=== PATIENT | male | born 1980 | race American Indian/Alaskan Native ===

== ENCOUNTER 2018-03-03 18:05 | Inpatient (IN) | payer OTHER ==
--- NOTE | 2018-03-03 20:53 | Emergency Department Report ---
Blank Doc - Documentation Documentation: Patient is a 37-year-old male who presents with dizziness and shortness of breath hasn't gone for about a week. Patient states that whenever he gets up or tries to walk he feels very short of breath and gets dizzy. Patient also has tinnitus in his right ear patient's exam is concerning for heart failure will get chest x-ray EKG troponin and EKG and BNP.
[2018-03-03 21:11] LABS: BUN/Creatinine Ratio 10; Blood Urea Nitrogen 8 mg/dL (9-20); Calcium 8.5 mg/dL (8.4-10.2); Hemolysis Index 0
[2018-03-03 22:10] LABS: Red Blood Count 1.16 M/mm3 (3.65-5.03)
[2018-03-03 22:12] LABS: Hematocrit 8.3 % (35.5-45.6); Hemoglobin 2.3 gm/dl (11.8-15.2); Mean Corpuscular Hemoglobin 20 pg (28-32); Mean Corpuscular Volume 72 fl (84-94)
[2018-03-03 22:13] LABS: Mean Corpuscular HGB Conc 28 % (32-34); Platelet Count 786 K/mm3 (140-440); Red Cell Distribution Width 28.2 % (13.2-15.2)
[2018-03-03] MEDS ORDERED: NACL 0.9% 500 ML 500 ML IV ONE (22:28)
[2018-03-03] MEDS ORDERED: PROTONIX IV ONE (22:42)
[2018-03-03 22:58] LABS: Anisocytosis 3+; Basophils % (Manual) 0 % (0.0-1.8); Eosinophils % (Manual) 0 % (0.0-4.3); Hypochromasia 2+; Total Cells Counted 100
[2018-03-03 22:59] LABS: Platelet Estimate Consistent w Auto
[2018-03-03] MEDS: PROTONIX 80 MG in NACL 0.9% 100 ML IV SCH (23:00)
--- NOTE | 2018-03-03 23:05 | Emergency Department Report ---
HPI - General Chief Complaint: Dizziness Time Seen by Provider: 03/03/18 21:29 - HPI HPI: 37-year-old male presents the ED with shortness of breath, leg swelling, dizziness. Last week, worse today. Patient states today he can only work for 5 steps without getting very tired. Patient states he is unable to climb stairs due to his shortness of breath. He leg swelling of been significantly worsening in the past week. Patient also complained 1 month history of alternating bloody, and black stools. He denies any past medical history except for history of left inguinal hernia status post repair in 2013. He does not have a primary care. ED Past Medical Hx - Past Medical History Previous Medical History?: Yes Hx Hypertension: No Additional medical history: Left inguinal hernia - Social History Smoking Status: Current Every Day Smoker Substance Use Type: Alcohol - Medications Home Medications: Home Medications Medication Instructions Recorded Confirmed Last Taken Type No Known Home Medications [No 08/09/14 09/22/14 Unknown History Reported Home Medications] ED Review of Systems ROS: Stated complaint: DIZZINESS/RINGING IN EARS/SWOLLEN FEET Other details as noted in HPI Comment: All other systems reviewed and negative Gastrointestinal: melena, hematochezia, other Neurological: weakness. denies: headache Hematological/Lymphatic: denies: as per HPI, easy bleeding, easy bruising, swollen glands Physical Exam - Physical Exam Vital Signs: Vital Signs 03/03/18 18:12 Temperature 98.9 F Pulse Rate 105 H Respiratory 16 Rate Blood Pressure 106/47 O2 Sat by Pulse 97 Oximetry Physical Exam: - Physical Exam Physical Exam: - General Limitations: No Limitations General appearance: alert, in no apparent distress. - Head Head exam: Present: atraumatic, normocephalic - Eye Eye exam: Present: normal appearance - ENT ENT exam: Present: mucous membranes moist - Neck Neck exam: Present: normal inspection - Respiratory Respiratory exam: Present: normal lung sounds bilaterally. Absent: respiratory distress - Cardiovascular Cardiovascular Exam: Present: normal rhythm, tachycardia. Absent: systolic murmur, diastolic murmur, rubs, gallop - GI/Abdominal GI/Abdominal exam: Present: soft, normal bowel sounds - Extremities Exam Extremities exam: Present: Bilateral lower extremity 3+ edema. - Back Exam Back exam: Present: normal inspection - Neurological Exam Neurological exam: Present: alert, oriented X3 - Psychiatric Psychiatric exam: normal affect and mood - Skin Skin exam: Present: warm, dry, intact, normal color. Absent: rash -Rectal: No active bleeding, bedside fecal occult blood negative ED Course Vital Signs 03/03/18 18:12 Temperature 98.9 F Pulse Rate 105 H Respiratory 16 Rate Blood Pressure 106/47 O2 Sat by Pulse 97 Oximetry - Reevaluation(s) Reevaluation #1: 03/03/18 23:45 Patient, girlfriend, grandfather at bedside given an update of patient's status , states that his condition is critical, will transfuse 4 units of blood, discussed case with Dr. Tevin CANALES, he will see patient in a.m. ED Medical Decision Making - Lab Data Result diagrams: 03/03/18 21:45 03/03/18 20:46 Critical Care Time: Yes Critical care attestation.: If time is entered above; I have spent that time in minutes in the direct care of this critically ill patient, excluding procedure time. ED Disposition Clinical Impression: Severe anemia Disposition: DC-[id number] OP ADMIT IP TO THIS HOSP Is pt being admited?: Yes Does the pt Need Aspirin: No Condition: Critical
[2018-03-03] MEDS ORDERED: NACL ONE (23:15)
--- NOTE | 2018-03-03 23:35 | XRay Report ---
FINAL REPORT EXAM: XR CHEST ROUTINE 2V HISTORY: sob TECHNIQUE: 2 views of the chest. PRIORS: None. FINDINGS: The cardiomediastinal silhouette appears normal. The lungs are clear. The bones and soft tissues are unremarkable. IMPRESSION: No evidence of acute cardiopulmonary disease
[2018-03-04] MEDS ORDERED: ZOFRAN IV PRN (00:50)
[2018-03-04] MEDS ORDERED: TYLENOL PO PRN (00:50)
[2018-03-04] MEDS ORDERED: NORCO 5/325 PO PRN (00:50)
[2018-03-04] MEDS ORDERED: SODIUM CHLORIDE FLUSH SYRINGE 10 ML IV PRN (00:50)
[2018-03-04] MEDS ORDERED: NACL 0.9% 1000 ML 1,000 ML IV SCH (01:00)
--- NOTE | 2018-03-04 01:20 | Cat Scan Report ---
FINAL REPORT EXAM: CT A/P w Contrast CLINICAL INDICATIONS: Abdomen Pain FINDINGS: Contrast enhanced CT of the abdomen and pelvis was performed. The heart is mildly large. The lung bases appear clear. Abdomen: There is fatty infiltration of the liver without suspect focal hepatic lesion. The spleen is mildly enlarged at 12.2 x 3.9 cm. The adrenal glands are within normal limits. No focal pancreatic lesion is seen. The gallbladder is unremarkable. There is no renal or ureteral calculus. There is no small or large bowel obstruction. Pelvis: There is a normal appendix. There is no evidence of diverticulitis. The prostate and urinary bladder are within normal limits. There is a fat-containing left inguinal hernia. There is no free air. IMPRESSION: CARDIOMEGALY ABDOMEN: FATTY INFILTRATION OF THE LIVER PELVIS: NORMAL APPENDIX FAT-CONTAINING LEFT INGUINAL HERNIA
[2018-03-04] MEDS ORDERED: XYLOCAINE 1% MPF 5 mL INFILTRATI ONE (01:45)
--- NOTE | 2018-03-04 01:51 | History and Physical Report ---
History of Present Illness Date of examination: 03/04/18 Date of admission: 03/03/18 22:52 Chief complaint: Dizziness History of present illness: Patient is a 37-year-old -[place] male who presented with one-week history of dizziness. He has associated generalized weakness, easy fatigability , near syncope, sob with mild exertion, leg swelling and palpitation. He also admits to 4 weeks history of passage of dark stool. No abdominal pain, constipation or diarrhea. Past History Past Medical History: other (hemorrhoids, left inguinal hernia) Past Surgical History: Other (hemorrhoidectomy) Social history: smoking (20 years), alcohol abuse (10 years), other (denies illicit drug use) Family history: other (reviewed and noncontributory) Medications and Allergies Allergies Allergy/AdvReac Type Severity Reaction Status Date / Time No Known Allergies Allergy Verified 09/21/14 18:11 Home Medications Medication Instructions Recorded Confirmed Last Taken Type No Known Home Medications [No 08/09/14 09/22/14 Unknown History Reported Home Medications] Active Meds: Active Medications Acetaminophen (Tylenol) 650 mg PO Q4H PRN PRN Reason: Pain MILD(1-3)/Fever >100.5/REYES Acetaminophen/Hydrocodone Bitart (Edwards 5/325) 1 each PO Q6H PRN PRN Reason: Pain, Moderate (4-6) Docusate Sodium (Colace) 100 mg PO BID IRIS Pantoprazole Sodium 80 mg/ (Sodium Chloride) 100 mls @ 10 mls/hr IV DIRECT IRIS Sodium Chloride (Nacl 0.9% 1000 Ml) 1,000 mls @ 75 mls/hr IV DIRECT IRIS Ceftriaxone Sodium 1,000 mg/ (Sodium Chloride) 50 mls @ 100 mls/hr IV Q24H IRIS ; Protocol Lidocaine (Xylocaine 1% Mpf 5 Ml) 2 ml INFILTRATI ONCE ONE Stop: 03/04/18 01:46 Ondansetron HCl (Zofran) 4 mg IV Q8H PRN PRN Reason: Nausea And Vomiting Sodium Chloride (Sodium Chloride Flush Syringe 10 Ml) 10 ml IV BID IRIS Sodium Chloride (Sodium Chloride Flush Syringe 10 Ml) 10 ml IV PRN PRN PRN Reason: LINE FLUSH Review of Systems All systems: negative (Except as documented in the HPI, all other systems were reviewed and negative) Exam - Constitutional Vitals: Temp Pulse Resp BP Pulse Ox 98.9 F 103 H 33 H 108/54 100 03/03/18 18:12 03/04/18 01:06 03/04/18 01:06 03/04/18 01:06 03/04/18 01:06 General appearance: Present: no acute distress, well-nourished - EENT Eyes: Present: PERRL, EOM intact, scleral icterus ENT: hearing intact, clear oral mucosa - Neck Neck: Present: supple, normal ROM - Respiratory Respiratory effort: normal Respiratory: bilateral: CTA - Cardiovascular Rhythm: regular (tachycardia) Heart Sounds: Present: S1 & S2. Absent: rub, click - Extremities Extremities: pulses symmetrical Extremity abnormal: edema (in BLE) Peripheral Pulses: within normal limits - Abdominal General gastrointestinal: Present: soft, non-tender, non-distended, normal bowel sounds Male genitourinary: Present: normal - Integumentary Integumentary: Present: dry, pale - Musculoskeletal Musculoskeletal: gait normal, strength equal bilaterally - Psychiatric Psychiatric: appropriate mood/affect, intact judgment & insight - Neurologic Neurologic: CNII-XII intact, moves all extremities Results - Labs CBC & Chem 7: 03/03/18 21:45 03/03/18 20:46 Labs: Laboratory Last Values WBC 20.4 K/mm3 (4.5-11.0) H 03/03/18 21:45 RBC 1.16 M/mm3 (3.65-5.03) L 03/03/18 21:45 Hgb 2.3 gm/dl (11.8-15.2) L* 03/03/18 21:45 Hct 8.3 % (35.5-45.6) L* 03/03/18 21:45 MCV 72 fl (84-94) L 03/03/18 21:45 MCH 20 pg (28-32) L 03/03/18 21:45 MCHC 28 % (32-34) L 03/03/18 21:45 RDW 28.2 % (13.2-15.2) H 03/03/18 21:45 Plt Count 786 K/mm3 (140-440) H 03/03/18 21:45 Add Manual Diff Complete 03/03/18 21:45 Total Counted 100 03/03/18 21:45 Seg Neuts % (Manual) 85.0 % (40.0-70.0) H 03/03/18 21:45 Band Neutrophils % 0 % 03/03/18 21:45 Lymphocytes % (Manual) 11.0 % (13.4-35.0) L 03/03/18 21:45 Reactive Lymphs % (Man) 0 % 03/03/18 21:45 Monocytes % (Manual) 4.0 % (0.0-7.3) 03/03/18 21:45 Eosinophils % (Manual) 0 % (0.0-4.3) 03/03/18 21:45 Basophils % (Manual) 0 % (0.0-1.8) 03/03/18 21:45 Metamyelocytes % 0 % 03/03/18 21:45 Myelocytes % 0 % 03/03/18 21:45 Promyelocytes % 0 % 03/03/18 21:45 Blast Cells % 0 % 03/03/18 21:45 Nucleated RBC % Not Reportable 03/03/18 21:45 Seg Neutrophils # Man 17.3 K/mm3 (1.8-7.7) H 03/03/18 21:45 Band Neutrophils # 0.0 K/mm3 03/03/18 21:45 Lymphocytes # (Manual) 2.2 K/mm3 (1.2-5.4) 03/03/18 21:45 Abs React Lymphs (Man) 0.0 K/mm3 03/03/18 21:45 Monocytes # (Manual) 0.8 K/mm3 (0.0-0.8) 03/03/18 21:45 Eosinophils # (Manual) 0.0 K/mm3 (0.0-0.4) 03/03/18 21:45 Basophils # (Manual) 0.0 K/mm3 (0.0-0.1) 03/03/18 21:45 Metamyelocytes # 0.0 K/mm3 03/03/18 21:45 Myelocytes # 0.0 K/mm3 03/03/18 21:45 Promyelocytes # 0.0 K/mm3 03/03/18 21:45 Blast Cells # 0.0 K/mm3 03/03/18 21:45 WBC Morphology Not Reportable 03/03/18 21:45 Hypersegmented Neuts Not Reportable 03/03/18 21:45 Hyposegmented Neuts Not Reportable 03/03/18 21:45 Hypogranular Neuts Not Reportable 03/03/18 21:45 Smudge Cells Not Reportable 03/03/18 21:45 Toxic Granulation Not Reportable 03/03/18 21:45 Toxic Vacuolation Not Reportable 03/03/18 21:45 Dohle Bodies Not Reportable 03/03/18 21:45 Pelger-Huet Anomaly Not Reportable 03/03/18 21:45 Leo Rods Not Reportable 03/03/18 21:45 Platelet Estimate Consistent w auto 03/03/18 21:45 Clumped Platelets Not Reportable 03/03/18 21:45 Plt Clumps, EDTA Not Reportable 03/03/18 21:45 Large Platelets Not Reportable 03/03/18 21:45 Giant Platelets Not Reportable 03/03/18 21:45 Platelet Satelliting Not Reportable 03/03/18 21:45 Plt Morphology Comment Not Reportable 03/03/18 21:45 RBC Morphology Not Reportable 03/03/18 21:45 Dimorphic RBCs Not Reportable 03/03/18 21:45 Polychromasia Not Reportable 03/03/18 21:45 Hypochromasia 2+ 03/03/18 21:45 Poikilocytosis Not Reportable 03/03/18 21:45 Anisocytosis 3+ 03/03/18 21:45 Microcytosis Not Reportable 03/03/18 21:45 Macrocytosis Not Reportable 03/03/18 21:45 Spherocytes Not Reportable 03/03/18 21:45 Pappenheimer Bodies Not Reportable 03/03/18 21:45 Sickle Cells Not Reportable 03/03/18 21:45 Target Cells Not Reportable 03/03/18 21:45 Tear Drop Cells Not Reportable 03/03/18 21:45 Ovalocytes Not Reportable 03/03/18 21:45 Helmet Cells Not Reportable 03/03/18 21:45 [place] Bodies Not Reportable 03/03/18 21:45 [place] Rings Not Reportable 03/03/18 21:45 James Cells Not Reportable 03/03/18 21:45 Bite Cells Not Reportable 03/03/18 21:45 Crenated Cell Not Reportable 03/03/18 21:45 Elliptocytes Not Reportable 03/03/18 21:45 Acanthocytes (Spur) Not Reportable 03/03/18 21:45 Rouleaux Not Reportable 03/03/18 21:45 Hemoglobin C Crystals Not Reportable 03/03/18 21:45 Schistocytes Not Reportable 03/03/18 21:45 Malaria parasites Not Reportable 03/03/18 21:45 Jonathan Bodies Not Reportable 03/03/18 21:45 Hem Pathologist Commnt No 03/03/18 21:45 Sodium 130 mmol/L (137-145) L 03/03/18 20:46 Potassium 4.2 mmol/L (3.6-5.0) 03/03/18 20:46 Chloride 94.2 mmol/L (98-107) L 03/03/18 20:46 Carbon Dioxide 20 mmol/L (22-30) L 03/03/18 20:46 Anion Gap 20 mmol/L 03/03/18 20:46 BUN 8 mg/dL (9-20) L 03/03/18 20:46 Creatinine 0.8 mg/dL (0.8-1.5) 03/03/18 20:46 Estimated GFR > 60 ml/min 03/03/18 20:46 BUN/Creatinine Ratio 10 % 03/03/18 20:46 Glucose 106 mg/dL (75-100) H 03/03/18 20:46 Calcium 8.5 mg/dL (8.4-10.2) 03/03/18 20:46 Troponin T < 0.010 ng/mL (0.00-0.029) 03/03/18 20:46 NT-Pro-B Natriuret Pep 1007 pg/mL (0-450) H 03/03/18 20:46 Blood Type O POSITIVE 03/03/18 22:49 Antibody Screen Negative 03/03/18 22:49 Crossmatch See Detail 03/03/18 22:49 Assessment and Plan Assessment and plan: GI bleed, probably secondary to history of hemorrhoid -Patient will be transfused with 4 units of packed red blood cells, will monitor posttransfusion H&H -Will continue Protonix drip -GI was consulted in the ED SIRS -Exact source of infection is unknown -We will obtain blood and urine cultures -We'll start empiric IV antibiotic with Rocephin Hyponatremia -Patient will be placed on IV fluid, will monitor sodium level History of alcohol abuse -He will be placed on alcohol withdrawal prophylaxis -Patient was counseled on cessation Elevated BNP -Will order echocardiogram to assess EF and valvular function Prophylaxis -DVT prophylaxis with SCD and GI prophylaxis with Protonix. 38 minutes spent in coordinating care
[2018-03-04] MEDS ORDERED: ROCEPHIN 1,000 MG in NACL 0.9% 50 ML IV SCH (02:00)
[2018-03-04] MEDS ORDERED: LASIX IV ONE (02:09)
[2018-03-04] MEDS ORDERED: ATIVAN IV PRN (02:28)
[2018-03-04] MEDS: cefTRIAXone 1 GM in NACL 0.9% 20 ML IV SCH ×2 (02:45→10:11)
[2018-03-04 03:13] LABS: Bilirubin,Urine NEG (Negative); Blood,Urine NEG (Negative); Color,Urine Yellow (Yellow); Protein,Urine <15 mg/dL mg/dL (Negative); Urobilinogen,Urine < 2.0 mg/dL (<2.0)
[2018-03-04] MEDS ORDERED: VITAMIN B-1 PO SCH (10:00)
[2018-03-04] MEDS: PROTONIX 80 MG in NACL 0.9% 100 ML IV SCH ×2 (10:09→20:54)
[2018-03-04] MEDS: FOLVITE PO SCH (10:12)
[2018-03-04] MEDS: COLACE PO SCH ×2 (10:12→21:54)
[2018-03-04] MEDS: SODIUM CHLORIDE FLUSH SYRINGE 10 ML IV SCH ×2 (10:12→21:55)
[2018-03-04] MEDS: THERAGRAN Tab PO SCH (10:12)
[2018-03-04] MEDS ORDERED: D5NS 1,000 ML IV SCH (10:30)
--- NOTE | 2018-03-04 10:35 | Gastroenterology Consultation ---
<NAZ JEAN - Last Filed: 03/04/18 10:54> History of Present Illness - Reason for Consult Consult date: 03/04/18 GI bleed Requesting physician: JAD LOPEZ - History of Present Illness Patient is a 37 y/o male who presented to ED with c/o SOB, dizziness, weakness, near syncope, leg swelling, and palpitations. He was found to be severely anemic on admission with HGB 2.3. Patient admits to blood in his stool alternating between black and bright red blood x 1 month. No hematemesis. Denies fever, wt loss, CP, abd pain, N/V, diarrhea, or constipation. No NSAID use or hx of PUD. Admits to drinking alcohol daily but denies any previous hx of liver disease. No prior EGD or colonoscopy. No hx or Fhx of GI cancers. Past History Past Medical History: other (hemorrhoids, left inguinal hernia) Past Surgical History: Other (hemorrhoidectomy) Social history: smoking (20 years), alcohol abuse (10 years), other (denies illicit drug use) Family history: other (reviewed and noncontributory) Medications and Allergies Allergies Allergy/AdvReac Type Severity Reaction Status Date / Time No Known Allergies Allergy Verified 09/21/14 18:11 Home Medications Medication Instructions Recorded Confirmed Last Taken Type No Known Home Medications [No 08/09/14 09/22/14 Unknown History Reported Home Medications] Active Meds: Active Medications Acetaminophen (Tylenol) 650 mg PO Q4H PRN PRN Reason: Pain MILD(1-3)/Fever >100.5/REYES Acetaminophen/Hydrocodone Bitart ([place] 5/325) 1 each PO Q6H PRN PRN Reason: Pain, Moderate (4-6) Docusate Sodium (Colace) 100 mg PO BID [facility] Last Admin: 03/04/18 10:12 Dose: 100 mg Folic Acid (Folvite) 1 mg PO QDAY [facility] Last Admin: 03/04/18 10:12 Dose: 1 mg Pantoprazole Sodium 80 mg/ (Sodium Chloride) 100 mls @ 10 mls/hr IV DIRECT [facility] Last Admin: 03/04/18 10:09 Dose: 8 mg/hr, 10 mls/hr Ceftriaxone Sodium 1 gm/ (Sodium Chloride) 20 mls @ 2 mls/min IV Q24HR [facility] Last Admin: 03/04/18 10:11 Dose: 2 mls/min Dextrose/Sodium Chloride (D5ns) 1,000 mls @ 100 mls/hr IV DIRECT [facility] Lorazepam (Ativan) 2 mg IV Q4H PRN PRN Reason: Agitation Multivitamins (Theragran Tab) 1 each PO QDAY [facility] Last Admin: 03/04/18 10:12 Dose: 1 each Ondansetron HCl (Zofran) 4 mg IV Q8H PRN PRN Reason: Nausea And Vomiting Sodium Chloride (Sodium Chloride Flush Syringe 10 Ml) 10 ml IV BID [facility] Last Admin: 03/04/18 10:12 Dose: 10 ml Sodium Chloride (Sodium Chloride Flush Syringe 10 Ml) 10 ml IV PRN PRN PRN Reason: LINE FLUSH Thiamine HCl (Vitamin B-1) 100 mg PO QDAY [facility] Last Admin: 03/04/18 10:12 Dose: 100 mg Review of Systems - Review of Systems All systems: negative Constitutional: weakness Gastrointestinal: melena, hematochezia Neurological: other (dizziness) Exam - Constitutional Vital Signs: Temp Pulse Resp BP Pulse Ox 99.2 F 103 H 18 124/60 99 03/04/18 04:00 03/04/18 02:50 03/04/18 05:07 03/04/18 02:50 03/04/18 02:49 General appearance: no acute distress, well-nourished - EENT Eyes: PERRL, EOM intact ENT: hearing intact - Respiratory Respiratory: bilateral: CTA - Cardiovascular Rhythm: other (tachycardia) Heart Sounds: Present: S1 & S2 - Gastrointestinal General gastrointestinal: Present: soft, non-tender, non-distended, normal bowel sounds - Integumentary Integumentary: Present: warm, dry - Neurologic Neurological: alert and oriented x3 - Labs CBC & Chem 7: 03/03/18 21:45 03/03/18 20:46 Lab Results: Laboratory Results - last 24 hr 03/03/18 03/03/18 03/03/18 20:46 21:45 22:49 WBC 20.4 H RBC 1.16 L Hgb 2.3 L* Hct 8.3 L* MCV 72 L MCH 20 L MCHC 28 L RDW 28.2 H Plt Count 786 H Add Manual Diff Complete Total Counted 100 Seg Neuts % (Manual) 85.0 H Band Neutrophils % 0 Lymphocytes % (Manual) 11.0 L Reactive Lymphs % (Man) 0 Monocytes % (Manual) 4.0 Eosinophils % (Manual) 0 Basophils % (Manual) 0 Metamyelocytes % 0 Myelocytes % 0 Promyelocytes % 0 Blast Cells % 0 Nucleated RBC % Not Reportable Seg Neutrophils # Man 17.3 H Band Neutrophils # 0.0 Lymphocytes # (Manual) 2.2 Abs React Lymphs (Man) 0.0 Monocytes # (Manual) 0.8 Eosinophils # (Manual) 0.0 Basophils # (Manual) 0.0 Metamyelocytes # 0.0 Myelocytes # 0.0 Promyelocytes # 0.0 Blast Cells # 0.0 WBC Morphology Not Reportable Hypersegmented Neuts Not Reportable Hyposegmented Neuts Not Reportable Hypogranular Neuts Not Reportable Smudge Cells Not Reportable Toxic Granulation Not Reportable Toxic Vacuolation Not Reportable Dohle Bodies Not Reportable Pelger-Huet Anomaly Not Reportable Leo Rods Not Reportable Platelet Estimate Consistent w auto Clumped Platelets Not Reportable Plt Clumps, EDTA Not Reportable Large Platelets Not Reportable Giant Platelets Not Reportable Platelet Satelliting Not Reportable Plt Morphology Comment Not Reportable RBC Morphology Not Reportable Dimorphic RBCs Not Reportable Polychromasia Not Reportable Hypochromasia 2+ Poikilocytosis Not Reportable Anisocytosis 3+ Microcytosis Not Reportable Macrocytosis Not Reportable Spherocytes Not Reportable Pappenheimer Bodies Not Reportable Sickle Cells Not Reportable Target Cells Not Reportable Tear Drop Cells Not Reportable Ovalocytes Not Reportable Helmet Cells Not Reportable Duncan-Kirkpatrick Bodies Not Reportable [place] Rings Not Reportable James Cells Not Reportable Bite Cells Not Reportable Crenated Cell Not Reportable Elliptocytes Not Reportable Acanthocytes (Spur) Not Reportable Rouleaux Not Reportable Hemoglobin C Crystals Not Reportable Schistocytes Not Reportable Malaria parasites Not Reportable Jonathan Bodies Not Reportable Hem Pathologist Commnt No Sodium 130 L Potassium 4.2 Chloride 94.2 L Carbon Dioxide 20 L Anion Gap 20 BUN 8 L Creatinine 0.8 Estimated GFR > 60 BUN/Creatinine Ratio 10 Glucose 106 H POC Glucose Calcium 8.5 Troponin T < 0.010 NT-Pro-B Natriuret Pep 1007 H Urine Color Urine Turbidity Urine pH Ur Specific [place] Urine Protein Urine Glucose (UA) Urine Ketones Urine Blood Urine Nitrite Urine Bilirubin Urine Urobilinogen Ur Leukocyte Esterase Urine WBC (Auto) Urine RBC (Auto) Blood Type O POSITIVE Antibody Screen Negative Crossmatch See Detail 03/03/18 03/04/18 Unknown 03:28 WBC RBC Hgb Hct MCV MCH MCHC RDW Plt Count Add Manual Diff Total Counted Seg Neuts % (Manual) Band Neutrophils % Lymphocytes % (Manual) Reactive Lymphs % (Man) Monocytes % (Manual) Eosinophils % (Manual) Basophils % (Manual) Metamyelocytes % Myelocytes % Promyelocytes % Blast Cells % Nucleated RBC % Seg Neutrophils # Man Band Neutrophils # Lymphocytes # (Manual) Abs React Lymphs (Man) Monocytes # (Manual) Eosinophils # (Manual) Basophils # (Manual) Metamyelocytes # Myelocytes # Promyelocytes # Blast Cells # WBC Morphology Hypersegmented Neuts Hyposegmented Neuts Hypogranular Neuts Smudge Cells Toxic Granulation Toxic Vacuolation Dohle Bodies Pelger-Huet Anomaly Leo Rods Platelet Estimate Clumped Platelets Plt Clumps, EDTA Large Platelets Giant Platelets Platelet Satelliting Plt Morphology Comment RBC Morphology Dimorphic RBCs Polychromasia Hypochromasia Poikilocytosis Anisocytosis Microcytosis Macrocytosis Spherocytes Pappenheimer Bodies Sickle Cells Target Cells Tear Drop Cells Ovalocytes Helmet Cells Duncan-Kirkpatrick Bodies [place] Rings James Cells Bite Cells Crenated Cell Elliptocytes Acanthocytes (Spur) Rouleaux Hemoglobin C Crystals Schistocytes Malaria parasites Jonathan Bodies Hem Pathologist Commnt Sodium Potassium Chloride Carbon Dioxide Anion Gap BUN Creatinine Estimated GFR BUN/Creatinine Ratio Glucose POC Glucose 109 H Calcium Troponin T NT-Pro-B Natriuret Pep Urine Color Yellow Urine Turbidity Clear Urine pH 6.0 Ur Specific [place] 1.019 Urine Protein <15 mg/dl Urine Glucose (UA) Neg Urine Ketones Neg Urine Blood Neg Urine Nitrite Neg Urine Bilirubin Neg Urine Urobilinogen < 2.0 Ur Leukocyte Esterase Neg Urine WBC (Auto) 1.0 Urine RBC (Auto) 1.0 Blood Type Antibody Screen Crossmatch Assessment and Plan 1.GI bleed 2.severe anemia 3.melena 4.hematochezia -HGB 2.3- 4th unit of PRBCs transfusing -continue to monitor H/H and transfuse as needed -hold blood thinning medications -currently HD stable -BM yesterday with bright red blood and brown stool per pt but he reports alternating black stools and bright red blood in stool x 1 month- no active signs of bleeding this am -etiology unclear -will schedule for EGD/colonoscopy in am -INR now -clear liquids today, then NPO after MN -continue PPI and supportive care -will follow <ABHISHEK GRAY - Last Filed: 03/04/18 19:13> Medications and Allergies Active Meds: Active Medications Acetaminophen (Tylenol) 650 mg PO Q4H PRN PRN Reason: Pain MILD(1-3)/Fever >100.5/REYES Acetaminophen/Hydrocodone Bitart ([place] 5/325) 1 each PO Q6H PRN PRN Reason: Pain, Moderate (4-6) Docusate Sodium (Colace) 100 mg PO BID [facility] Last Admin: 03/04/18 10:12 Dose: 100 mg Folic Acid (Folvite) 1 mg PO QDAY [facility] Last Admin: 03/04/18 10:12 Dose: 1 mg Pantoprazole Sodium 80 mg/ (Sodium Chloride) 100 mls @ 10 mls/hr IV DIRECT [facility] Last Admin: 03/04/18 10:09 Dose: 8 mg/hr, 10 mls/hr Ceftriaxone Sodium 1 gm/ (Sodium Chloride) 20 mls @ 2 mls/min IV Q24HR [facility] Last Admin: 03/04/18 10:11 Dose: 2 mls/min Dextrose/Sodium Chloride (D5ns) 1,000 mls @ 100 mls/hr IV DIRECT [facility] Lorazepam (Ativan) 2 mg IV Q4H PRN PRN Reason: Agitation Multivitamins (Theragran Tab) 1 each PO QDAY [facility] Last Admin: 03/04/18 10:12 Dose: 1 each Ondansetron HCl (Zofran) 4 mg IV Q8H PRN PRN Reason: Nausea And Vomiting Sodium Chloride (Sodium Chloride Flush Syringe 10 Ml) 10 ml IV BID [facility] Last Admin: 03/04/18 10:12 Dose: 10 ml Sodium Chloride (Sodium Chloride Flush Syringe 10 Ml) 10 ml IV PRN PRN PRN Reason: LINE FLUSH Thiamine HCl (Vitamin B-1) 100 mg PO QDAY [facility] Last Admin: 03/04/18 10:12 Dose: 100 mg Exam - Constitutional Vital Signs: Temp Pulse Resp BP Pulse Ox 98.1 F 90 16 124/74 100 03/04/18 12:00 03/04/18 18:50 03/04/18 18:50 03/04/18 18:50 03/04/18 18:50 - Labs CBC & Chem 7: 03/04/18 12:16 03/04/18 12:16 Lab Results: Laboratory Results - last 24 hr 03/03/18 03/03/18 03/03/18 20:46 21:45 22:49 WBC 20.4 H RBC 1.16 L Hgb 2.3 L* Hct 8.3 L* MCV 72 L MCH 20 L MCHC 28 L RDW 28.2 H Plt Count 786 H Add Manual Diff Complete Total Counted 100 Seg Neuts % (Manual) 85.0 H Band Neutrophils % 0 Lymphocytes % (Manual) 11.0 L Reactive Lymphs % (Man) 0 Monocytes % (Manual) 4.0 Eosinophils % (Manual) 0 Basophils % (Manual) 0 Metamyelocytes % 0 Myelocytes % 0 Promyelocytes % 0 Blast Cells % 0 Nucleated RBC % Not Reportable Seg Neutrophils # Man 17.3 H Band Neutrophils # 0.0 Lymphocytes # (Manual) 2.2 Abs React Lymphs (Man) 0.0 Monocytes # (Manual) 0.8 Eosinophils # (Manual) 0.0 Basophils # (Manual) 0.0 Metamyelocytes # 0.0 Myelocytes # 0.0 Promyelocytes # 0.0 Blast Cells # 0.0 WBC Morphology Not Reportable Hypersegmented Neuts Not Reportable Hyposegmented Neuts Not Reportable Hypogranular Neuts Not Reportable Smudge Cells Not Reportable Toxic Granulation Not Reportable Toxic Vacuolation Not Reportable Dohle Bodies Not Reportable Pelger-Huet Anomaly Not Reportable Leo Rods Not Reportable Platelet Estimate Consistent w auto Clumped Platelets Not Reportable Plt Clumps, EDTA Not Reportable Large Platelets Not Reportable Giant Platelets Not Reportable Platelet Satelliting Not Reportable Plt Morphology Comment Not Reportable RBC Morphology Not Reportable Dimorphic RBCs Not Reportable Polychromasia Not Reportable Hypochromasia 2+ Poikilocytosis Not Reportable Anisocytosis 3+ Microcytosis Not Reportable Macrocytosis Not Reportable Spherocytes Not Reportable Pappenheimer Bodies Not Reportable Sickle Cells Not Reportable Target Cells Not Reportable Tear Drop Cells Not Reportable Ovalocytes Not Reportable Helmet Cells Not Reportable Duncan-Kirkpatrick Bodies Not Reportable [place] Rings Not Reportable James Cells Not Reportable Bite Cells Not Reportable Crenated Cell Not Reportable Elliptocytes Not Reportable Acanthocytes (Spur) Not Reportable Rouleaux Not Reportable Hemoglobin C Crystals Not Reportable Schistocytes Not Reportable Malaria parasites Not Reportable Jonathan Bodies Not Reportable Hem Pathologist Commnt No PT INR APTT Sodium 130 L Potassium 4.2 Chloride 94.2 L Carbon Dioxide 20 L Anion Gap 20 BUN 8 L Creatinine 0.8 Estimated GFR > 60 BUN/Creatinine Ratio 10 Glucose 106 H POC Glucose Lactic Acid Calcium 8.5 Phosphorus Magnesium Total Bilirubin AST ALT Alkaline Phosphatase Troponin T < 0.010 C-Reactive Protein NT-Pro-B Natriuret Pep 1007 H Total Protein Albumin Albumin/Globulin Ratio Urine Color Urine Turbidity Urine pH Ur Specific [place] Urine Protein Urine Glucose (UA) Urine Ketones Urine Blood Urine Nitrite Urine Bilirubin Urine Urobilinogen Ur Leukocyte Esterase Urine WBC (Auto) Urine RBC (Auto) Blood Type O POSITIVE Antibody Screen Negative Crossmatch See Detail 03/03/18 03/04/18 03/04/18 Unknown 03:28 12:16 WBC RBC Hgb Hct MCV MCH MCHC RDW Plt Count Add Manual Diff Total Counted Seg Neuts % (Manual) Band Neutrophils % Lymphocytes % (Manual) Reactive Lymphs % (Man) Monocytes % (Manual) Eosinophils % (Manual) Basophils % (Manual) Metamyelocytes % Myelocytes % Promyelocytes % Blast Cells % Nucleated RBC % Seg Neutrophils # Man Band Neutrophils # Lymphocytes # (Manual) Abs React Lymphs (Man) Monocytes # (Manual) Eosinophils # (Manual) Basophils # (Manual) Metamyelocytes # Myelocytes # Promyelocytes # Blast Cells # WBC Morphology Hypersegmented Neuts Hyposegmented Neuts Hypogranular Neuts Smudge Cells Toxic Granulation Toxic Vacuolation Dohle Bodies Pelger-Huet Anomaly Leo Rods Platelet Estimate Clumped Platelets Plt Clumps, EDTA Large Platelets Giant Platelets Platelet Satelliting Plt Morphology Comment RBC Morphology Dimorphic RBCs Polychromasia Hypochromasia Poikilocytosis Anisocytosis Microcytosis Macrocytosis Spherocytes Pappenheimer Bodies Sickle Cells Target Cells Tear Drop Cells Ovalocytes Helmet Cells Duncan-Kirkpatrick Bodies [place] Rings James Cells Bite Cells Crenated Cell Elliptocytes Acanthocytes (Spur) Rouleaux Hemoglobin C Crystals Schistocytes Malaria parasites Jonathan Bodies Hem Pathologist Commnt PT INR APTT Sodium Potassium Chloride Carbon Dioxide Anion Gap BUN Creatinine Estimated GFR BUN/Creatinine Ratio Glucose POC Glucose 109 H Lactic Acid 1.10 Calcium Phosphorus Magnesium Total Bilirubin AST ALT Alkaline Phosphatase Troponin T C-Reactive Protein NT-Pro-B Natriuret Pep Total Protein Albumin Albumin/Globulin Ratio Urine Color Yellow Urine Turbidity Clear Urine pH 6.0 Ur Specific [place] 1.019 Urine Protein <15 mg/dl Urine Glucose (UA) Neg Urine Ketones Neg Urine Blood Neg Urine Nitrite Neg Urine Bilirubin Neg Urine Urobilinogen < 2.0 Ur Leukocyte Esterase Neg Urine WBC (Auto) 1.0 Urine RBC (Auto) 1.0 Blood Type Antibody Screen Crossmatch 03/04/18 03/04/18 03/04/18 12:16 12:16 12:16 WBC 15.8 H RBC 2.52 L Hgb 6.1 L D Hct 19.7 L* D MCV 78 L MCH 24 L MCHC 31 L RDW 25.1 H Plt Count 730 H Add Manual Diff Complete Total Counted 100 Seg Neuts % (Manual) 87.0 H Band Neutrophils % 0 Lymphocytes % (Manual) 8.0 L Reactive Lymphs % (Man) 0 Monocytes % (Manual) 4.0 Eosinophils % (Manual) 1.0 Basophils % (Manual) 0 Metamyelocytes % 0 Myelocytes % 0 Promyelocytes % 0 Blast Cells % 0 Nucleated RBC % Not Reportable Seg Neutrophils # Man 13.7 H Band Neutrophils # 0.0 Lymphocytes # (Manual) 1.3 Abs React Lymphs (Man) 0.0 Monocytes # (Manual) 0.6 Eosinophils # (Manual) 0.2 Basophils # (Manual) 0.0 Metamyelocytes # 0.0 Myelocytes # 0.0 Promyelocytes # 0.0 Blast Cells # 0.0 WBC Morphology Not Reportable Hypersegmented Neuts Not Reportable Hyposegmented Neuts Not Reportable Hypogranular Neuts Not Reportable Smudge Cells Not Reportable Toxic Granulation Not Reportable Toxic Vacuolation Not Reportable Dohle Bodies Not Reportable Pelger-Huet Anomaly Not Reportable Leo Rods Not Reportable Platelet Estimate Consistent w auto Clumped Platelets Not Reportable Plt Clumps, EDTA Not Reportable Large Platelets Not Reportable Giant Platelets Not Reportable Platelet Satelliting Not Reportable Plt Morphology Comment Not Reportable RBC Morphology Not Reportable Dimorphic RBCs Not Reportable Polychromasia Not Reportable Hypochromasia 2+ Poikilocytosis Not Reportable Anisocytosis 2+ Microcytosis 1+ Macrocytosis 1+ Spherocytes Not Reportable Pappenheimer Bodies Not Reportable Sickle Cells Not Reportable Target Cells Not Reportable Tear Drop Cells Not Reportable Ovalocytes Few Helmet Cells Not Reportable Duncan-Kirkpatrick Bodies Not Reportable [place] Rings Not Reportable [place] Cells Not Reportable Bite Cells Not Reportable Crenated Cell Not Reportable Elliptocytes Few Acanthocytes (Spur) Not Reportable Rouleaux Not Reportable Hemoglobin C Crystals Not Reportable Schistocytes Not Reportable Malaria parasites Not Reportable Jonathan Bodies Not Reportable Hem Pathologist Commnt No PT INR APTT Sodium 136 L 136 L Potassium 3.3 L D 3.5 L Chloride 97.3 L 96.9 L Carbon Dioxide 22 21 L Anion Gap 20 22 BUN 8 L 8 L Creatinine 0.7 L 0.8 Estimated GFR > 60 > 60 BUN/Creatinine Ratio 11 10 Glucose 103 H 92 POC Glucose Lactic Acid Calcium 8.7 8.8 Phosphorus Magnesium Total Bilirubin 1.90 H AST 69 H ALT 31 Alkaline Phosphatase 146 H Troponin T C-Reactive Protein 1.60 H NT-Pro-B Natriuret Pep Total Protein 7.6 Albumin 3.6 L Albumin/Globulin Ratio 0.9 Urine Color Urine Turbidity Urine pH Ur Specific [place] Urine Protein Urine Glucose (UA) Urine Ketones Urine Blood Urine Nitrite Urine Bilirubin Urine Urobilinogen Ur Leukocyte Esterase Urine WBC (Auto) Urine RBC (Auto) Blood Type Antibody Screen Crossmatch 03/04/18 03/04/18 12:16 17:26 WBC RBC Hgb Hct MCV MCH MCHC RDW Plt Count Add Manual Diff Total Counted Seg Neuts % (Manual) Band Neutrophils % Lymphocytes % (Manual) Reactive Lymphs % (Man) Monocytes % (Manual) Eosinophils % (Manual) Basophils % (Manual) Metamyelocytes % Myelocytes % Promyelocytes % Blast Cells % Nucleated RBC % Seg Neutrophils # Man Band Neutrophils # Lymphocytes # (Manual) Abs React Lymphs (Man) Monocytes # (Manual) Eosinophils # (Manual) Basophils # (Manual) Metamyelocytes # Myelocytes # Promyelocytes # Blast Cells # WBC Morphology Hypersegmented Neuts Hyposegmented Neuts Hypogranular Neuts Smudge Cells Toxic Granulation Toxic Vacuolation Dohle Bodies Pelger-Huet Anomaly Leo Rods Platelet Estimate Clumped Platelets Plt Clumps, EDTA Large Platelets Giant Platelets Platelet Satelliting Plt Morphology Comment RBC Morphology Dimorphic RBCs Polychromasia Hypochromasia Poikilocytosis Anisocytosis Microcytosis Macrocytosis Spherocytes Pappenheimer Bodies Sickle Cells Target Cells Tear Drop Cells Ovalocytes Helmet Cells Duncan-Kirkpatrick Bodies [place] Rings James Cells Bite Cells Crenated Cell Elliptocytes Acanthocytes (Spur) Rouleaux Hemoglobin C Crystals Schistocytes Malaria parasites Jonathan Bodies Hem Pathologist Commnt PT 16.6 H INR 1.27 H APTT 28.0 Sodium Potassium Chloride Carbon Dioxide Anion Gap BUN Creatinine Estimated GFR BUN/Creatinine Ratio Glucose POC Glucose Lactic Acid Calcium Phosphorus 2.40 L Magnesium 2.00 Total Bilirubin AST ALT Alkaline Phosphatase Troponin T C-Reactive Protein NT-Pro-B Natriuret Pep Total Protein Albumin Albumin/Globulin Ratio Urine Color Urine Turbidity Urine pH Ur Specific [place] Urine Protein Urine Glucose (UA) Urine Ketones Urine Blood Urine Nitrite Urine Bilirubin Urine Urobilinogen Ur Leukocyte Esterase Urine WBC (Auto) Urine RBC (Auto) Blood Type Antibody Screen Crossmatch Assessment and Plan Pt seen and examined. Agree with note by Naz Jean. Patient presenting with profound microcytic anemia with episodes or black and bright bm's recently. He had a severe anemia from labs in 2014 (hgb ~8). Will plan for egd /colonoscopy tomorrow. further recommendations based on endoscopy findings.
[2018-03-04] MEDS ORDERED: GOLYTELY PO NR (11:30)
--- NOTE | 2018-03-04 12:11 | Consultation ---
History of Present Illness Consult date: 03/04/18 Requesting physician: SUKHDEV GARCIA Reason for consult: other (Acute GI Bleed; Symptomatic Anemia) History of present illness: PULMONARY/CCM CONSULT NOTE (Full dictation # [id number]) Please see dictated notes for full details Past History Past Medical History: other (hemorrhoids, left inguinal hernia) Past Surgical History: Other (hemorrhoidectomy) Social history: smoking (20 years), alcohol abuse (10 years), other (denies illicit drug use) Family history: other (reviewed and noncontributory) Medications and Allergies Allergies Allergy/AdvReac Type Severity Reaction Status Date / Time No Known Allergies Allergy Verified 09/21/14 18:11 Home Medications Medication Instructions Recorded Confirmed Last Taken Type No Known Home Medications [No 08/09/14 03/07/18 Unknown History Reported Home Medications] Active Meds: Active Medications Acetaminophen (Tylenol) 650 mg PO Q4H PRN PRN Reason: Pain MILD(1-3)/Fever >100.5/REYES Acetaminophen/Hydrocodone Bitart ([place] 5/325) 1 each PO Q6H PRN PRN Reason: Pain, Moderate (4-6) Docusate Sodium (Colace) 100 mg PO BID [facility] Last Admin: 03/04/18 10:12 Dose: 100 mg Folic Acid (Folvite) 1 mg PO QDAY [facility] Last Admin: 03/04/18 10:12 Dose: 1 mg Pantoprazole Sodium 80 mg/ (Sodium Chloride) 100 mls @ 10 mls/hr IV DIRECT [facility] Last Admin: 03/04/18 10:09 Dose: 8 mg/hr, 10 mls/hr Ceftriaxone Sodium 1 gm/ (Sodium Chloride) 20 mls @ 2 mls/min IV Q24HR [facility] Last Admin: 03/04/18 10:11 Dose: 2 mls/min Dextrose/Sodium Chloride (D5ns) 1,000 mls @ 100 mls/hr IV DIRECT [facility] Lorazepam (Ativan) 2 mg IV Q4H PRN PRN Reason: Agitation Multivitamins (Theragran Tab) 1 each PO QDAY [facility] Last Admin: 03/04/18 10:12 Dose: 1 each Ondansetron HCl (Zofran) 4 mg IV Q8H PRN PRN Reason: Nausea And Vomiting Polyethylene Glycol/Electrolytes (Golytely) 4,000 ml PO ONCE NR Stop: 03/04/18 14:00 Sodium Chloride (Sodium Chloride Flush Syringe 10 Ml) 10 ml IV BID [facility] Last Admin: 03/04/18 10:12 Dose: 10 ml Sodium Chloride (Sodium Chloride Flush Syringe 10 Ml) 10 ml IV PRN PRN PRN Reason: LINE FLUSH Thiamine HCl (Vitamin B-1) 100 mg PO QDAY [facility] Last Admin: 03/04/18 10:12 Dose: 100 mg Physical Examination Vital signs: Vital Signs Temp Pulse Resp BP Pulse Ox 98.9 F 105 H 16 106/47 97 03/03/18 18:12 03/03/18 18:12 03/03/18 18:12 03/03/18 18:12 03/03/18 18:12 Results - Laboratory Findings CBC and BMP: 03/07/18 04:56 03/06/18 05:16 Abnormal lab findings: Abnormal Labs 03/03/18 03/03/18 03/03/18 20:46 21:45 22:49 WBC 20.4 H RBC 1.16 L Hgb 2.3 L* Hct 8.3 L* MCV 72 L MCH 20 L MCHC 28 L RDW 28.2 H Plt Count 786 H Seg Neuts % (Manual) 85.0 H Lymphocytes % (Manual) 11.0 L Seg Neutrophils # Man 17.3 H Sodium 130 L Chloride 94.2 L Carbon Dioxide 20 L BUN 8 L Glucose 106 H POC Glucose NT-Pro-B Natriuret Pep 1007 H Crossmatch See Detail 03/04/18 03:28 WBC RBC Hgb Hct MCV MCH MCHC RDW Plt Count Seg Neuts % (Manual) Lymphocytes % (Manual) Seg Neutrophils # Man Sodium Chloride Carbon Dioxide BUN Glucose POC Glucose 109 H NT-Pro-B Natriuret Pep Crossmatch
[2018-03-04 13:00] LABS: Mean Corpuscular HGB Conc 31 % (32-34); Mean Corpuscular Volume 78 fl (84-94); Platelet Count 730 K/mm3 (140-440); Red Blood Count 2.52 M/mm3 (3.65-5.03)
[2018-03-04 13:04] LABS: Mean Corpuscular Hemoglobin 24 pg (28-32); Red Cell Distribution Width 25.1 % (13.2-15.2)
[2018-03-04 13:07] LABS: Hematocrit 19.7 % (35.5-45.6); Hemoglobin 6.1 gm/dl (11.8-15.2)
[2018-03-04 13:12] LABS: Alanine Aminotransferase 31 units/L (7-56); Albumin 3.6 g/dL (3.9-5); BUN/Creatinine Ratio 11; Blood Urea Nitrogen 8 mg/dL (9-20); Calcium 8.7 mg/dL (8.4-10.2); Hemolysis Index 6
[2018-03-04 13:13] LABS: BUN/Creatinine Ratio 10; Blood Urea Nitrogen 8 mg/dL (9-20); Calcium 8.8 mg/dL (8.4-10.2); Hemolysis Index 9
[2018-03-04 13:46] LABS: Anisocytosis 2+; Basophils % (Manual) 0 % (0.0-1.8); Total Cells Counted 100
[2018-03-04 13:47] LABS: Hypochromasia 2+; Macrocytosis 1+; Ovalocytes Few; Platelet Estimate Consistent w Auto
[2018-03-04 17:56] LABS: INR 1.27 (0.87-1.13)
[2018-03-04] MEDS ORDERED: NACL 0.9% 500 ML 500 ML IV ONE (18:01)
--- NOTE | 2018-03-04 18:06 | Progress Note ---
Assessment and Plan GI bleed, probably secondary to esophageal varices -Patient transfused with 4 units of packed red blood cells, will monitor post transfusion H&H -Will continue Protonix drip -GI was consulted in the ED, plan for EGD and colonoscopy tomorrow SIRS -Exact source of infection is unknown -We will follow blood and urine cultures -We'll cont empiric IV antibiotic with Rocephin Hyponatremia -cont on IV fluid, will monitor sodium level History of alcohol abuse -placed on alcohol withdrawal protocol -Patient was counseled on cessation Elevated BNP -Ordered echocardiogram to assess EF and valvular function Prophylaxis -DVT prophylaxis with SCD and GI prophylaxis with Protonix. Brief history: Patient is a 37-year-old -[place] male who presented with one-week history of dizziness. He has associated generalized weakness, easy fatigability , near syncope, sob with mild exertion, leg swelling and palpitation. He also admits to 4 weeks history of passage of dark stool. On admission his hemoglobin noted to be 2.3. GI consulted from ER, ordered for 4 units of packed RBC, placed on coated to her protocol. Plan for EGD and colonoscopy tomorrow. Radiological test: Chest x-ray: No infiltrates CT scan of abdomen and pelvis with contrast: No acute intra-abdominal process, fatty infiltration of the liver. Hospitalist Physical exam: GENERAL: well-developed and well-nourished -[place] male lying on bed appeared to be in no discomfort. HEENT: Normocephalic. Atraumatic. No conjunctival congestion or icterus. Patient has moist mucous membranes. NECK: Supple. Trachea midline. CHEST/LUNGS: Clear to auscultated bilaterally, breathing nonlabored. No wheezes crackles or rhonchi. HEART/CARDIOVASCULAR: Regular in rate and rhythm. S1 and S2 positive. ABDOMEN: Abdomen is soft, nontender. Patient has normal bowel sounds. SKIN: There is no rash. Warm and dry. NEURO: No focal motor deficit. Follows command. MUSCULOSKELETAL: No joint effusion or tenderness. EXTRIMITY: No edema, no cyanosis or clubbing. PSYCH: Cooperative. Subjective Date of service: 03/04/18 Interval history: Patient seen and examined. Medical records and medication list reviewed. No acute event overnight noted by the RN. Patient denies any chest pain or difficulty breathing. Patient is tolerating clear liquid diet. Discussed plan of care at bedside with patient. Objective - Constitutional Vitals: Vital Signs - 12hr 03/04/18 03/04/18 03/04/18 06:10 06:20 06:30 Temperature Pulse Rate 91 H 92 H 90 Pulse Rate [ From Monitor] Respiratory 18 16 23 Rate Blood Pressure 116/66 116/66 116/66 O2 Sat by Pulse 100 99 100 Oximetry 03/04/18 03/04/18 03/04/18 06:40 06:50 07:00 Temperature Pulse Rate 93 H 91 H 92 H Pulse Rate [ From Monitor] Respiratory 19 16 16 Rate Blood Pressure 116/66 116/66 121/70 O2 Sat by Pulse 100 99 99 Oximetry 03/04/18 03/04/18 03/04/18 07:10 07:20 07:30 Temperature Pulse Rate 90 92 H 92 H Pulse Rate [ From Monitor] Respiratory 17 15 16 Rate Blood Pressure 121/70 121/70 121/70 O2 Sat by Pulse 99 99 100 Oximetry 03/04/18 03/04/18 03/04/18 07:40 07:50 08:00 Temperature 99.3 F Pulse Rate 91 H 93 H 90 Pulse Rate [ From Monitor] Respiratory 16 19 24 Rate Blood Pressure 121/70 121/70 114/70 O2 Sat by Pulse 99 100 100 Oximetry 03/04/18 03/04/18 03/04/18 08:10 08:20 08:30 Temperature Pulse Rate 89 93 H 90 Pulse Rate [ From Monitor] Respiratory 13 25 H 17 Rate Blood Pressure 114/70 114/70 114/70 O2 Sat by Pulse 100 100 100 Oximetry 03/04/18 03/04/18 03/04/18 08:36 08:40 08:50 Temperature Pulse Rate 92 H 92 H 93 H Pulse Rate [ From Monitor] Respiratory 27 H 21 Rate Blood Pressure 114/70 114/70 O2 Sat by Pulse 100 100 Oximetry 03/04/18 03/04/18 03/04/18 09:00 09:07 09:10 Temperature Pulse Rate 90 93 H Pulse Rate [ 92 H From Monitor] Respiratory 21 21 19 Rate Blood Pressure 119/68 119/68 O2 Sat by Pulse 99 99 Oximetry 03/04/18 03/04/18 03/04/18 09:20 09:30 09:40 Temperature Pulse Rate 91 H 91 H 95 H Pulse Rate [ From Monitor] Respiratory 15 21 26 H Rate Blood Pressure 119/68 119/68 119/68 O2 Sat by Pulse 100 100 99 Oximetry 03/04/18 03/04/18 03/04/18 09:50 10:00 10:10 Temperature Pulse Rate 90 91 H 92 H Pulse Rate [ From Monitor] Respiratory 19 20 19 Rate Blood Pressure 119/68 118/73 118/73 O2 Sat by Pulse 99 99 100 Oximetry 03/04/18 03/04/18 03/04/18 10:20 10:30 10:40 Temperature Pulse Rate 95 H 90 88 Pulse Rate [ From Monitor] Respiratory 18 19 23 Rate Blood Pressure 118/73 118/73 118/73 O2 Sat by Pulse 100 100 100 Oximetry 03/04/18 03/04/18 03/04/18 10:50 11:00 11:10 Temperature Pulse Rate 90 87 121 H Pulse Rate [ From Monitor] Respiratory 17 16 24 Rate Blood Pressure 118/73 120/72 120/72 O2 Sat by Pulse 100 100 Oximetry 03/04/18 03/04/18 03/04/18 11:20 11:30 11:40 Temperature Pulse Rate 112 H 95 H 98 H Pulse Rate [ From Monitor] Respiratory 22 13 20 Rate Blood Pressure 120/72 120/72 120/72 O2 Sat by Pulse 99 98 Oximetry 03/04/18 03/04/18 03/04/18 11:50 12:00 12:10 Temperature 98.1 F Pulse Rate 95 H 93 H 96 H Pulse Rate [ From Monitor] Respiratory 27 H 26 H 20 Rate Blood Pressure 120/72 120/72 120/72 O2 Sat by Pulse 100 100 100 Oximetry 03/04/18 03/04/18 03/04/18 12:20 12:30 12:40 Temperature Pulse Rate 95 H 93 H 94 H Pulse Rate [ From Monitor] Respiratory 15 20 11 L Rate Blood Pressure 120/72 120/72 120/72 O2 Sat by Pulse 100 100 100 Oximetry 03/04/18 03/04/18 03/04/18 12:50 13:00 13:10 Temperature Pulse Rate 99 H 96 H 96 H Pulse Rate [ 89 From Monitor] Respiratory 19 24 21 Rate Blood Pressure 120/72 127/79 127/79 O2 Sat by Pulse 95 100 100 Oximetry 03/04/18 03/04/18 03/04/18 13:20 13:30 13:40 Temperature Pulse Rate 102 H 98 H 93 H Pulse Rate [ From Monitor] Respiratory 19 22 13 Rate Blood Pressure 127/79 127/79 127/79 O2 Sat by Pulse 100 100 100 Oximetry 03/04/18 03/04/18 13:50 14:00 Temperature Pulse Rate 95 H 92 H Pulse Rate [ From Monitor] Respiratory 20 17 Rate Blood Pressure 127/79 127/74 O2 Sat by Pulse 100 100 Oximetry - Labs CBC & Chem 7: 03/05/18 04:21 03/05/18 04:21 Labs: Abnormal lab results 03/03/18 03/03/18 03/03/18 Range/Units 20:46 21:45 22:49 WBC 20.4 H (4.5-11.0) K/mm3 RBC 1.16 L (3.65-5.03) M/mm3 Hgb 2.3 L* (11.8-15.2) gm/dl Hct 8.3 L* (35.5-45.6) % MCV 72 L (84-94) fl MCH 20 L (28-32) pg MCHC 28 L (32-34) % RDW 28.2 H (13.2-15.2) % Plt Count 786 H (140-440) K/mm3 Seg Neuts % (Manual) 85.0 H (40.0-70.0) % Lymphocytes % (Manual) 11.0 L (13.4-35.0) % Seg Neutrophils # Man 17.3 H (1.8-7.7) K/mm3 PT (12.2-14.9) Sec. INR (0.87-1.13) Sodium 130 L (137-145) mmol/L Potassium (3.6-5.0) mmol/L Chloride 94.2 L (98-107) mmol/L Carbon Dioxide 20 L (22-30) mmol/L BUN 8 L (9-20) mg/dL Creatinine (0.8-1.5) mg/dL Glucose 106 H (75-100) mg/dL POC Glucose (70-105) Phosphorus (2.5-4.5) mg/dL Total Bilirubin (0.1-1.2) mg/dL AST (5-40) units/L Alkaline Phosphatase (35-129) units/L C-Reactive Protein (0.00-1.30) mg/dL NT-Pro-B Natriuret Pep 1007 H (0-450) pg/mL Albumin (3.9-5) g/dL Crossmatch See Detail 03/04/18 03/04/18 03/04/18 Range/Units 03:28 12:16 12:16 WBC 15.8 H (4.5-11.0) K/mm3 RBC 2.52 L (3.65-5.03) M/mm3 Hgb 6.1 L D (11.8-15.2) gm/dl Hct 19.7 L* D (35.5-45.6) % MCV 78 L (84-94) fl MCH 24 L (28-32) pg MCHC 31 L (32-34) % RDW 25.1 H (13.2-15.2) % Plt Count 730 H (140-440) K/mm3 Seg Neuts % (Manual) 87.0 H (40.0-70.0) % Lymphocytes % (Manual) 8.0 L (13.4-35.0) % Seg Neutrophils # Man 13.7 H (1.8-7.7) K/mm3 PT (12.2-14.9) Sec. INR (0.87-1.13) Sodium 136 L (137-145) mmol/L Potassium 3.3 L D (3.6-5.0) mmol/L Chloride 97.3 L (98-107) mmol/L Carbon Dioxide (22-30) mmol/L BUN 8 L (9-20) mg/dL Creatinine 0.7 L (0.8-1.5) mg/dL Glucose 103 H (75-100) mg/dL POC Glucose 109 H (70-105) Phosphorus (2.5-4.5) mg/dL Total Bilirubin 1.90 H (0.1-1.2) mg/dL AST 69 H (5-40) units/L Alkaline Phosphatase 146 H (35-129) units/L C-Reactive Protein (0.00-1.30) mg/dL NT-Pro-B Natriuret Pep (0-450) pg/mL Albumin 3.6 L (3.9-5) g/dL Crossmatch 03/04/18 03/04/18 03/04/18 Range/Units 12:16 12:16 17:26 WBC (4.5-11.0) K/mm3 RBC (3.65-5.03) M/mm3 Hgb (11.8-15.2) gm/dl Hct (35.5-45.6) % MCV (84-94) fl MCH (28-32) pg MCHC (32-34) % RDW (13.2-15.2) % Plt Count (140-440) K/mm3 Seg Neuts % (Manual) (40.0-70.0) % Lymphocytes % (Manual) (13.4-35.0) % Seg Neutrophils # Man (1.8-7.7) K/mm3 PT 16.6 H (12.2-14.9) Sec. INR 1.27 H (0.87-1.13) Sodium 136 L (137-145) mmol/L Potassium 3.5 L (3.6-5.0) mmol/L Chloride 96.9 L (98-107) mmol/L Carbon Dioxide 21 L (22-30) mmol/L BUN 8 L (9-20) mg/dL Creatinine (0.8-1.5) mg/dL Glucose (75-100) mg/dL POC Glucose (70-105) Phosphorus 2.40 L (2.5-4.5) mg/dL Total Bilirubin (0.1-1.2) mg/dL AST (5-40) units/L Alkaline Phosphatase (35-129) units/L C-Reactive Protein 1.60 H (0.00-1.30) mg/dL NT-Pro-B Natriuret Pep (0-450) pg/mL Albumin (3.9-5) g/dL Crossmatch
[2018-03-05 05:18] LABS: Mean Corpuscular HGB Conc 31 % (32-34); Mean Corpuscular Volume 77 fl (84-94); Platelet Count 632 K/mm3 (140-440); Red Blood Count 2.16 M/mm3 (3.65-5.03)
[2018-03-05 05:41] LABS: BUN/Creatinine Ratio 8; Blood Urea Nitrogen 5 mg/dL (9-20); Hemolysis Index 0
[2018-03-05 06:18] LABS: Mean Corpuscular Hemoglobin 24 pg (28-32); Red Cell Distribution Width 25.1 % (13.2-15.2)
[2018-03-05 06:21] LABS: Hemoglobin 5.2 gm/dl (11.8-15.2)
[2018-03-05 06:22] LABS: Hematocrit 16.6 % (35.5-45.6)
[2018-03-05] MEDS: PROTONIX 80 MG in NACL 0.9% 100 ML IV SCH (08:00)
[2018-03-05 08:01] LABS: Band Neutrophils # (Manual) 0.5 K/mm3; Basophils % (Manual) 0 % (0.0-1.8); Eosinophils % (Manual) 0 % (0.0-4.3); Total Cells Counted 100
[2018-03-05 08:02] LABS: Anisocytosis 2+; Hypochromasia 2+; Large Platelets Few; Platelet Estimate Appears Increased; Stomatocytes Few
[2018-03-05] MEDS ORDERED: NACL 0.9% 500 ML 500 ML IV ONE (09:20)
[2018-03-05] MEDS ORDERED: VITAMIN B-1 100 MG in NACL 0.9% 50 ML IV SCH (10:00)
[2018-03-05] MEDS: COLACE PO SCH (10:47)
[2018-03-05] MEDS: FOLVITE PO SCH (10:47)
[2018-03-05] MEDS: THERAGRAN Tab PO SCH (10:47)
[2018-03-05] MEDS: cefTRIAXone 1 GM in NACL 0.9% 20 ML IV SCH (10:54)
[2018-03-05] MEDS: SODIUM CHLORIDE FLUSH SYRINGE 10 ML IV SCH (10:54)
--- NOTE | 2018-03-05 11:38 | Progress Note ---
Assessment and Plan GI bleed, probably secondary to esophageal varices -Patient transfused with 5 units of packed red blood cells, Hb today 5.7 -Will continue Protonix drip, transfuse additional 2 more units of PRBC -GI was consulted in the ED, plan for EGD today - had one bloody BM yesterday SIRS -Exact source of infection is unknown -We will follow blood and urine cultures -We'll cont empiric IV antibiotic with Rocephin Hyponatremia -cont on IV fluid, will monitor sodium level History of alcohol abuse -placed on alcohol withdrawal protocol -Patient was counseled on cessation Elevated BNP -Ordered echocardiogram to assess EF and valvular function Prophylaxis -DVT prophylaxis with SCD and GI prophylaxis with Protonix. Brief history: Patient is a 37-year-old -[place] male who presented with one-week history of dizziness. He has associated generalized weakness, easy fatigability , near syncope, sob with mild exertion, leg swelling and palpitation. He also admits to 4 weeks history of passage of dark stool. On admission his hemoglobin noted to be 2.3. GI consulted from ER, ordered for 4 units of packed RBC, placed on alcohol withdrawl protocol. Plan for EGD today. Radiological test: Chest x-ray: No infiltrates CT scan of abdomen and pelvis with contrast: No acute intra-abdominal process, fatty infiltration of the liver. Hospitalist Physical exam: GENERAL: well-developed and well-nourished -[place] male lying on bed appeared to be in no discomfort. HEENT: Normocephalic. Atraumatic. No conjunctival congestion or icterus. Patient has moist mucous membranes. NECK: Supple. Trachea midline. CHEST/LUNGS: Clear to auscultated bilaterally, breathing nonlabored. No wheezes crackles or rhonchi. HEART/CARDIOVASCULAR: Regular in rate and rhythm. S1 and S2 positive. ABDOMEN: Abdomen is soft, nontender. Patient has normal bowel sounds. SKIN: There is no rash. Warm and dry. NEURO: No focal motor deficit. Follows command. MUSCULOSKELETAL: No joint effusion or tenderness. EXTRIMITY: No edema, no cyanosis or clubbing. PSYCH: Cooperative. Subjective Date of service: 03/05/18 Interval history: Patient seen and examined. Medical records and medication list reviewed. Had bloody BM yesterday Patient denies any chest pain or difficulty breathing. Patient is tolerating clear liquid diet. Discussed plan of care at bedside with patient. planned for EGD today Objective - Constitutional Vitals: Vital Signs - 12hr 03/05/18 03/05/18 03/05/18 01:00 05:00 08:00 Temperature 98.6 F Pulse Rate 81 Pulse Rate [ 78 From Monitor] Respiratory Rate Blood Pressure O2 Sat by Pulse 100 100 98 Oximetry 03/05/18 03/05/18 10:00 11:29 Temperature 98.6 F 98.5 F Pulse Rate 77 Pulse Rate [ 80 From Monitor] Respiratory 13 17 Rate Blood Pressure 114/64 O2 Sat by Pulse 99 100 Oximetry - Labs CBC & Chem 7: 03/05/18 04:21 03/05/18 04:21 Labs: Abnormal lab results 03/03/18 03/04/18 03/04/18 Range/Units 22:49 12:16 12:16 WBC 15.8 H (4.5-11.0) K/mm3 RBC 2.52 L (3.65-5.03) M/mm3 Hgb 6.1 L D (11.8-15.2) gm/dl Hct 19.7 L* D (35.5-45.6) % MCV 78 L (84-94) fl MCH 24 L (28-32) pg MCHC 31 L (32-34) % RDW 25.1 H (13.2-15.2) % Plt Count 730 H (140-440) K/mm3 Seg Neuts % (Manual) 87.0 H (40.0-70.0) % Lymphocytes % (Manual) 8.0 L (13.4-35.0) % Seg Neutrophils # Man 13.7 H (1.8-7.7) K/mm3 PT (12.2-14.9) Sec. INR (0.87-1.13) Sodium 136 L (137-145) mmol/L Potassium 3.3 L D (3.6-5.0) mmol/L Chloride 97.3 L (98-107) mmol/L Carbon Dioxide (22-30) mmol/L BUN 8 L (9-20) mg/dL Creatinine 0.7 L (0.8-1.5) mg/dL Glucose 103 H (75-100) mg/dL Calcium (8.4-10.2) mg/dL Phosphorus (2.5-4.5) mg/dL Total Bilirubin 1.90 H (0.1-1.2) mg/dL AST 69 H (5-40) units/L Alkaline Phosphatase 146 H (35-129) units/L C-Reactive Protein (0.00-1.30) mg/dL Albumin 3.6 L (3.9-5) g/dL Crossmatch See Detail 03/04/18 03/04/18 03/04/18 Range/Units 12:16 12:16 17:26 WBC (4.5-11.0) K/mm3 RBC (3.65-5.03) M/mm3 Hgb (11.8-15.2) gm/dl Hct (35.5-45.6) % MCV (84-94) fl MCH (28-32) pg MCHC (32-34) % RDW (13.2-15.2) % Plt Count (140-440) K/mm3 Seg Neuts % (Manual) (40.0-70.0) % Lymphocytes % (Manual) (13.4-35.0) % Seg Neutrophils # Man (1.8-7.7) K/mm3 PT 16.6 H (12.2-14.9) Sec. INR 1.27 H (0.87-1.13) Sodium 136 L (137-145) mmol/L Potassium 3.5 L (3.6-5.0) mmol/L Chloride 96.9 L (98-107) mmol/L Carbon Dioxide 21 L (22-30) mmol/L BUN 8 L (9-20) mg/dL Creatinine (0.8-1.5) mg/dL Glucose (75-100) mg/dL Calcium (8.4-10.2) mg/dL Phosphorus 2.40 L (2.5-4.5) mg/dL Total Bilirubin (0.1-1.2) mg/dL AST (5-40) units/L Alkaline Phosphatase (35-129) units/L C-Reactive Protein 1.60 H (0.00-1.30) mg/dL Albumin (3.9-5) g/dL Crossmatch 03/05/18 03/05/18 Range/Units 04:21 04:21 WBC 13.2 H (4.5-11.0) K/mm3 RBC 2.16 L (3.65-5.03) M/mm3 Hgb 5.2 L* (11.8-15.2) gm/dl Hct 16.6 L* (35.5-45.6) % MCV 77 L (84-94) fl MCH 24 L (28-32) pg MCHC 31 L (32-34) % RDW 25.1 H (13.2-15.2) % Plt Count 632 H (140-440) K/mm3 Seg Neuts % (Manual) 80.0 H (40.0-70.0) % Lymphocytes % (Manual) 11.0 L (13.4-35.0) % Seg Neutrophils # Man 10.6 H (1.8-7.7) K/mm3 PT (12.2-14.9) Sec. INR (0.87-1.13) Sodium 136 L (137-145) mmol/L Potassium (3.6-5.0) mmol/L Chloride (98-107) mmol/L Carbon Dioxide (22-30) mmol/L BUN 5 L (9-20) mg/dL Creatinine 0.6 L (0.8-1.5) mg/dL Glucose (75-100) mg/dL Calcium 8.0 L (8.4-10.2) mg/dL Phosphorus (2.5-4.5) mg/dL Total Bilirubin (0.1-1.2) mg/dL AST (5-40) units/L Alkaline Phosphatase (35-129) units/L C-Reactive Protein (0.00-1.30) mg/dL Albumin (3.9-5) g/dL Crossmatch
[2018-03-05] MEDS ORDERED: WATER FOR IRRIG STERILE IR ONE (13:21)
[2018-03-05] MEDS ORDERED: NACL 0.9% 1000 ML 1,000 ML ONE (13:22)
--- NOTE | 2018-03-05 13:40 | Anesthesia Day of Surgery ---
Anesthesia Day of Surgery - Day of Surgery Patient Examined: Yes Patient H&P Reviewed: Yes Patient is NPO: Yes Beta Blockers: No
--- NOTE | 2018-03-05 13:41 | Anesthesia Consultation ---
Anesthesia Consult and Med Hx Date of service: 03/05/18 - Airway Anesthetic Teeth Evaluation: Good ROM Head & Neck: Adequate Mental/Hyoid Distance: Adequate Mallampati Class: Class III Intubation Access Assessment: Probably Good - Pulmonary Exam CTA: Yes - Cardiac Exam Cardiac Exam: No Murmur - Pre-Operative Health Status ASA Pre-Surgery Classification: ASA2, Emergency Proposed Anesthetic Plan: MAC - Pulmonary Hx Smoking: Yes Hx Asthma: No COPD: No Hx Pneumonia: No - Cardiovascular System Hx Hypertension: No Hx Coronary Artery Disease: No Hx Heart Attack/AMI: No Hx Angina: No Hx Percutaneous Transluminal Coronary Angioplasty (PTCA): No Hx Cardia Arrhythmia: No Hx Pacemaker: No Hx Internal Defibrillator: No Hx Valvular Heart Disease: No Hx Heart Murmur: No Hx Peripheral Vascular Disease: No - Central Nervous System Hx Neuromuscular Disorder: No Hx Seizures: No CVA: No Hx Back Pain: No Hx Psychiatric Problems: No - Gastrointestinal Hx Ulcer: No Hx Gastroesophageal Reflux Disease: No - Endocrine Hx Renal Disease: No Hx End Stage Renal Disease: No Hx Cirrhosis: No Hx Liver Disease: No Hx Insulin Dependent Diabetes: No Hx Non-Insulin Dependent Diabetes: No Hx Thyroid Disease: No Hx Hypothyroidism: No Hx Hyperthyroidism: No - Hematic Hx Anemia: Yes - Other Systems Hx Alcohol Use: Yes (ABUSE) Hx Substance Use: No Hx Cancer: No Hx Obesity: No
[2018-03-05] MEDS ORDERED: DIPRIVAN 10 MG/ML IV ONE (13:46)
[2018-03-05] MEDS ORDERED: NEO SYNEPHRINE ONE (13:46)
[2018-03-05] MEDS ORDERED: ePHEDrine SULFATE ONE (13:46)
[2018-03-05] MEDS ORDERED: AMIDATE IV ONE (13:46)
[2018-03-05] MEDS ORDERED: VERSED ONE (13:46)
[2018-03-05] MEDS ORDERED: DECADRON ONE (13:46)
[2018-03-05] MEDS ORDERED: ZOFRAN ONE (13:46)
--- NOTE | 2018-03-05 14:29 | Post Operative Note ---
Pre-op diagnosis: GI Bleed Post-op diagnosis: other (Hiatal Hernia, Sheree) Findings: 1. Small hiatal hernia 2. Mild sheree esophagitis 3. No blood/clots present Procedure: EGD Anesthesia: MAC Surgeon: CHRIS CASTILLO Estimated blood loss: none Pathology: none Specimen disposition: other (N/A) Condition: stable Disposition: floor (Recs: 1. Clear liquid diet; prep for colonoscopy tomorrow. 2. Continue transfusion as needed. 3. MVI daily. 4. No gross GI output in last 24 hours: ?if hematologic problem (will send LDH and Hgbopathy panel). 5. Monitor for EtOH W/D. 6. Sheree likely from heavy smoking, but would consider an HIV test if clinically appropriate.)
[2018-03-05] MEDS ORDERED: NORCO 5/325 PO PRN (14:31)
--- NOTE | 2018-03-05 14:52 | Operative Report ---
PROCEDURE PERFORMED: Esophagogastroduodenoscopy. PREOPERATIVE DIAGNOSES: Severe anemia and history of gastrointestinal bleeding. POSTOPERATIVE DIAGNOSES: Hiatal hernia and Sheree esophagitis, but no active bleeding. ENDOSCOPIST: Thony Graham MD INSTRUMENT: [employer] video endoscope. MEDICATIONS: MAC anesthesia by [facility]. COMPLICATIONS: No apparent complications. ESTIMATED BLOOD LOSS: None SPECIMENS: None. IMPLANTS: None. ASSISTANTS: None. CONDITION AT COMPLETION: Stable. TECHNIQUE: The patient was informed of the risks and benefits of the procedure. He signed the informed consent to proceed. He was placed in the left lateral decubitus position. The above sedative medications were given. His vital signs remained stable throughout the procedure. The instrument was advanced from the mouth to the second portion of the duodenum under direct visualization. At that point, the bowel was insufflated and the endoscope was slowly withdrawn. FINDINGS: 1. No blood and no blood clots in the upper GI tract. 2. Small hiatal hernia. 3. Mild Sheree esophagitis in the lower third. RECOMMENDATIONS: 1. Clear liquid diet. We will prep for colonoscopy tomorrow given the severity of his anemia. 2. Continue transfusions as needed. 3. Multivitamin daily therapy. 4. No gross bloody GI output in the last 24 hours; I question if this is a hematologic problem, we will send a LDH and a hemoglobinopathy panel. 5. Monitor for alcohol withdrawal. 6. Sheree is likely from heavy smoking, but I would consider an HIV test if clinically appropriate. JOB# [id number] FABRICIO/NTS
[2018-03-05] MEDS ORDERED: NACL 0.9% 1000 ML 1,000 ML IV SCH (15:00)
[2018-03-05] MEDS: PROTONIX PO SCH (15:23)
[2018-03-05] MEDS ORDERED: GOLYTELY PO ONE (16:00)
--- NOTE | 2018-03-05 16:04 | Progress Note ---
Subjective Date of service: 03/05/18 Objective Vital Signs - 12hr 03/05/18 03/05/18 03/05/18 05:00 08:00 10:00 Temperature 98.6 F 98.6 F Pulse Rate 81 Pulse Rate [ 78 80 From Monitor] Respiratory 13 Rate Blood Pressure O2 Sat by Pulse 100 98 99 Oximetry 03/05/18 03/05/18 03/05/18 11:29 11:45 12:00 Temperature 98.5 F 98.3 F Pulse Rate 77 77 Pulse Rate [ 97 H From Monitor] Respiratory 17 16 Rate Blood Pressure 114/64 116/72 O2 Sat by Pulse 100 98 98 Oximetry 03/05/18 03/05/18 03/05/18 12:15 12:45 13:15 Temperature 98.0 F 98.4 F 98.3 F Pulse Rate 80 81 73 Pulse Rate [ From Monitor] Respiratory 11 L 16 18 Rate Blood Pressure 120/79 124/77 123/75 O2 Sat by Pulse 99 100 100 Oximetry 03/05/18 03/05/18 03/05/18 13:40 13:45 13:50 Temperature 98.5 F 98.5 F 98 F Pulse Rate 83 83 93 H Pulse Rate [ From Monitor] Respiratory 83 H 18 12 Rate Blood Pressure 122/76 122/76 122/76 O2 Sat by Pulse 100 99 Oximetry 03/05/18 03/05/18 03/05/18 14:13 14:23 14:28 Temperature 98 F Pulse Rate 98 H 90 Pulse Rate [ 88 From Monitor] Respiratory 16 16 Rate Blood Pressure 131/84 108/63 O2 Sat by Pulse 100 99 100 Oximetry 03/05/18 03/05/18 03/05/18 14:40 14:43 14:55 Temperature 98.5 F 98.3 F Pulse Rate 86 92 H 84 Pulse Rate [ From Monitor] Respiratory 21 15 21 Rate Blood Pressure 112/64 111/76 121/74 O2 Sat by Pulse 97 100 97 Oximetry 03/05/18 15:25 Temperature 98.2 F Pulse Rate 80 Pulse Rate [ From Monitor] Respiratory 19 Rate Blood Pressure 106/63 O2 Sat by Pulse 99 Oximetry CBC and BMP: 03/05/18 04:21 03/05/18 04:21 ABG, PT/INR, D-dimer: PT/INR, D-dimer PT 16.6 Sec. (12.2-14.9) H 03/04/18 17:26 INR 1.27 (0.87-1.13) H 03/04/18 17:26 Abnormal lab findings: Abnormal Labs 03/03/18 03/03/18 03/03/18 20:46 21:45 22:49 WBC 20.4 H RBC 1.16 L Hgb 2.3 L* Hct 8.3 L* MCV 72 L MCH 20 L MCHC 28 L RDW 28.2 H Plt Count 786 H Seg Neuts % (Manual) 85.0 H Lymphocytes % (Manual) 11.0 L Seg Neutrophils # Man 17.3 H PT INR Sodium 130 L Potassium Chloride 94.2 L Carbon Dioxide 20 L BUN 8 L Creatinine Glucose 106 H POC Glucose Calcium Phosphorus Total Bilirubin AST Alkaline Phosphatase C-Reactive Protein NT-Pro-B Natriuret Pep 1007 H Albumin Crossmatch See Detail 03/04/18 03/04/18 03/04/18 03:28 12:16 12:16 WBC 15.8 H RBC 2.52 L Hgb 6.1 L D Hct 19.7 L* D MCV 78 L MCH 24 L MCHC 31 L RDW 25.1 H Plt Count 730 H Seg Neuts % (Manual) 87.0 H Lymphocytes % (Manual) 8.0 L Seg Neutrophils # Man 13.7 H PT INR Sodium 136 L Potassium 3.3 L D Chloride 97.3 L Carbon Dioxide BUN 8 L Creatinine 0.7 L Glucose 103 H POC Glucose 109 H Calcium Phosphorus Total Bilirubin 1.90 H AST 69 H Alkaline Phosphatase 146 H C-Reactive Protein NT-Pro-B Natriuret Pep Albumin 3.6 L Crossmatch 03/04/18 03/04/18 03/04/18 12:16 12:16 17:26 WBC RBC Hgb Hct MCV MCH MCHC RDW Plt Count Seg Neuts % (Manual) Lymphocytes % (Manual) Seg Neutrophils # Man PT 16.6 H INR 1.27 H Sodium 136 L Potassium 3.5 L Chloride 96.9 L Carbon Dioxide 21 L BUN 8 L Creatinine Glucose POC Glucose Calcium Phosphorus 2.40 L Total Bilirubin AST Alkaline Phosphatase C-Reactive Protein 1.60 H NT-Pro-B Natriuret Pep Albumin Crossmatch 03/05/18 03/05/18 04:21 04:21 WBC 13.2 H RBC 2.16 L Hgb 5.2 L* Hct 16.6 L* MCV 77 L MCH 24 L MCHC 31 L RDW 25.1 H Plt Count 632 H Seg Neuts % (Manual) 80.0 H Lymphocytes % (Manual) 11.0 L Seg Neutrophils # Man 10.6 H PT INR Sodium 136 L Potassium Chloride Carbon Dioxide BUN 5 L Creatinine 0.6 L Glucose POC Glucose Calcium 8.0 L Phosphorus Total Bilirubin AST Alkaline Phosphatase C-Reactive Protein NT-Pro-B Natriuret Pep Albumin Crossmatch
[2018-03-06 06:07] LABS: Basophils % (Auto) 0.1 % (0.0-1.8); Hematocrit 24.7 % (35.5-45.6); Hemoglobin 8.1 gm/dl (11.8-15.2); Lymphocytes % (Auto) 5.4 % (13.4-35.0); Mean Corpuscular HGB Conc 33 % (32-34); Mean Corpuscular Volume 78 fl (84-94); Monocytes # (Auto) 0.8 K/mm3 (0.0-0.8); Monocytes % (Auto) 4.5 % (0.0-7.3); Platelet Count 681 K/mm3 (140-440); Red Blood Count 3.18 M/mm3 (3.65-5.03)
[2018-03-06 06:09] LABS: Mean Corpuscular Hemoglobin 25 pg (28-32)
[2018-03-06 06:10] LABS: Red Cell Distribution Width 23.5 % (13.2-15.2)
[2018-03-06 06:30] LABS: Alanine Aminotransferase 43 units/L (7-56); Albumin 3.6 g/dL (3.9-5); BUN/Creatinine Ratio 10; Blood Urea Nitrogen 6 mg/dL (9-20); Calcium 8.5 mg/dL (8.4-10.2); Hemolysis Index 0
[2018-03-06] MEDS: SODIUM CHLORIDE FLUSH SYRINGE 10 ML IV SCH ×3 (07:55→22:00)
[2018-03-06] MEDS: COLACE PO SCH ×4 (07:55→21:59)
[2018-03-06] MEDS ORDERED: WATER FOR IRRIG STERILE IR ONE (08:02)
[2018-03-06] MEDS: PROTONIX PO SCH ×2 (10:17→11:57)
[2018-03-06] MEDS: FOLVITE PO SCH (10:17)
[2018-03-06] MEDS: THERAGRAN Tab PO SCH ×2 (10:18→11:57)
[2018-03-06] MEDS: VITAMIN B-1 PO SCH ×2 (10:18→11:58)
[2018-03-06] MEDS ORDERED: DIPRIVAN 10 MG/ML IV ONE ×2 (10:52→10:53)
--- NOTE | 2018-03-06 11:33 | Post Operative Note ---
Pre-op diagnosis: GI Bleed Post-op diagnosis: other (Tics, hemorrhoids) Findings: 1. Diverticulosis in R colon and sigmoid 2. Grade II internal hemorrhoids 3. No blood in colon (trace brown stool) 4. Terminal Ileum normal Procedure: Colonoscopy Anesthesia: MAC Surgeon: CHRIS CASTILLO Estimated blood loss: none Pathology: none Specimen disposition: other (N/A) Condition: stable Disposition: floor (Recs: 1. OK to transition to floor with PO MVI and regular diet; OK to d/c tomorrow if no further bleeding. 2. Bleeding is likely diverticular; if re-occurs needs stat bleeding scan or CT angio to localize. 3. Capsule endoscopy as an outpatient. 4. F/U hemoglobinopathy panel as the patient appears to have some chronic anemia.)
[2018-03-06] MEDS: cefTRIAXone 1 GM in NACL 0.9% 20 ML IV SCH (11:56)
--- NOTE | 2018-03-06 13:04 | Progress Note ---
Assessment and Plan GI bleed, probably from diverticulosis -Patient transfused with total 7 units of packed red blood cells, Hb today 8.1 -GI was consulted in the ED, s/p EGD and colonoscopy- no gross blood found - advance diet, transfer out off icu unit today to floor - monitor H and h Grade 2 internal hemorrhoid - place on [place] steroid SIRS -no source of infection, likely reactive -negative blood and urine cultures, normal CXR, no fever -We'll stop abx, monitor cbc Hyponatremia -improved with IV fluid, History of alcohol abuse -placed on alcohol withdrawal protocol -Patient was counseled on cessation Elevated BNP -preserved EF on echocardiogram Prophylaxis -DVT prophylaxis with SCD and GI prophylaxis with Protonix. Brief history: Patient is a 37-year-old -Indian male who presented with one-week history of dizziness. He has associated generalized weakness, easy fatigability , near syncope, sob with mild exertion, leg swelling and palpitation. He also admits to 4 weeks history of passage of dark stool. On admission his hemoglobin noted to be 2.3. GI consulted from ER, transfused total 7 units of packed RBC, placed on alcohol withdrawl protocol. s/p EGD and colonoscopy showed diverticulosis and Grade 2 internal hemorrhoid. Radiological test: Chest x-ray: No infiltrates CT scan of abdomen and pelvis with contrast: No acute intra-abdominal process, fatty infiltration of the liver. 2d echo - Ef 55% Hospitalist Physical exam: GENERAL: well-developed and well-nourished -Indian male lying on bed appeared to be in no discomfort. HEENT: Normocephalic. Atraumatic. No conjunctival congestion or icterus. Patient has moist mucous membranes. NECK: Supple. Trachea midline. CHEST/LUNGS: Clear to auscultated bilaterally, breathing nonlabored. No wheezes crackles or rhonchi. HEART/CARDIOVASCULAR: Regular in rate and rhythm. S1 and S2 positive. ABDOMEN: Abdomen is soft, nontender. Patient has normal bowel sounds. SKIN: There is no rash. Warm and dry. NEURO: No focal motor deficit. Follows command. MUSCULOSKELETAL: No joint effusion or tenderness. EXTRIMITY: No edema, no cyanosis or clubbing. PSYCH: Cooperative. Subjective Date of service: 03/06/18 Interval history: Patient seen and examined. Medical records and medication list reviewed. Had bloody BM yesterday Patient denies any chest pain or difficulty breathing. Discussed plan of care at bedside with patient. s/p colonoscopy today Objective - Constitutional Vitals: Vital Signs - 12hr 03/06/18 03/06/18 03/06/18 04:00 08:00 10:53 Temperature 98.1 F 98.1 F 97.5 F L Pulse Rate 68 Respiratory 18 Rate Blood Pressure 114/73 O2 Sat by Pulse 68 L Oximetry 03/06/18 03/06/18 03/06/18 11:23 11:38 11:53 Temperature 97.5 F L Pulse Rate 80 80 88 Respiratory 20 20 20 Rate Blood Pressure 121/69 126/70 119/72 O2 Sat by Pulse 80 L 80 L 88 Oximetry 03/06/18 12:09 Temperature 97.5 F L Pulse Rate Respiratory Rate Blood Pressure O2 Sat by Pulse Oximetry - Labs CBC & Chem 7: 03/06/18 05:16 03/06/18 05:16 Labs: Abnormal lab results 03/03/18 03/06/18 03/06/18 Range/Units 22:49 05:16 05:16 WBC 18.0 H (4.5-11.0) K/mm3 RBC 3.18 L (3.65-5.03) M/mm3 Hgb 8.1 L (11.8-15.2) gm/dl Hct 24.7 L D (35.5-45.6) % MCV 78 L (84-94) fl MCH 25 L (28-32) pg RDW 23.5 H (13.2-15.2) % Plt Count 681 H (140-440) K/mm3 Lymph % (Auto) 5.4 L (13.4-35.0) % Lymph # 1.0 L (1.2-5.4) K/mm3 Seg Neutrophils % 90.0 H (40.0-70.0) % Seg Neutrophils # 16.2 H (1.8-7.7) K/mm3 Chloride 97.9 L (98-107) mmol/L Carbon Dioxide 21 L (22-30) mmol/L BUN 6 L (9-20) mg/dL Creatinine 0.6 L (0.8-1.5) mg/dL Glucose 110 H (75-100) mg/dL AST 75 H (5-40) units/L Alkaline Phosphatase 146 H (35-129) units/L Albumin 3.6 L (3.9-5) g/dL Crossmatch See Detail
--- NOTE | 2018-03-06 14:02 | Operative Report ---
PROCEDURE PERFORMED: Colonoscopy. PREOPERATIVE DIAGNOSES: Gastrointestinal bleeding and anemia. POSTOPERATIVE DIAGNOSES: Diverticulosis and hemorrhoids, but no active bleeding. ENDOSCOPIST: Thony Graham MD. INSTRUMENT: Fantoo video endoscope. MEDICATIONS: MAC anesthesia by [facility]. COMPLICATIONS: No apparent complications. ESTIMATED BLOOD LOSS: None. SPECIMENS: None. IMPLANTS: None. ASSISTANTS: None. CONDITION AT COMPLETION: Stable. TECHNIQUE: The patient was informed of the risks and benefits of the procedure. He signed the informed consent to proceed. He was placed in the left lateral decubitus position. The above sedative medications were given. His vital signs remained stable throughout the procedure. The instrument was advanced from the anus to the cecum under direct visualization. The cecum was identified by the appendiceal orifice and the ileocecal valve. At that point, the bowel was insufflated and the endoscope was slowly withdrawn. The quality of preparation was good. There was a small amount of liquid brown stool throughout the colon. FINDINGS: 1. Diverticulosis isolated to the right colon, in particular the cecum, as well as the sigmoid colon. 2. Grade 2 internal hemorrhoids. 3. No blood or blood clots in the colon or the terminal ileum. 4. The terminal ileum, cannulated approximately 5 cm, was normal. RECOMMENDATIONS: 1. Okay to transition the patient to the floor with oral multivitamins and a regular diet; okay to discharge home tomorrow if no further bleeding. 2. I suspect the bleeding is likely diverticular and if it recurs the patient needs a stat bleeding scan or CT angiogram to localize the source. 3. Capsule endoscopy as an outpatient. 4. Follow up on hemoglobinopathy panel in the clinic as the patient appears to have some baseline chronic anemia as well. JOB# [id number] FABRICIO/NTS
--- NOTE | 2018-03-06 18:33 | Progress Note ---
Subjective Date of service: 03/06/18 Principal diagnosis: Acute GI Bleed; Symptomatic Anemia Interval history: Patient seen today for: Acute GI Bleed; Symptomatic Anemia Seen and examined at bedside; 24-hour events reviewed; nursing and respiratory care staff consulted; no adverse overnight events reported to me; Objective Vital Signs - 12hr 03/06/18 03/06/18 03/06/18 08:00 10:53 11:23 Temperature 98.1 F 97.5 F L 97.5 F L Pulse Rate 68 80 Respiratory 18 20 Rate Blood Pressure 114/73 121/69 O2 Sat by Pulse 68 L 80 L Oximetry 03/06/18 03/06/18 03/06/18 11:38 11:53 12:09 Temperature 97.5 F L Pulse Rate 80 88 Respiratory 20 20 Rate Blood Pressure 126/70 119/72 O2 Sat by Pulse 80 L 88 Oximetry 03/06/18 16:00 Temperature 98.9 F Pulse Rate Respiratory Rate Blood Pressure O2 Sat by Pulse Oximetry CBC and BMP: 03/06/18 05:16 03/06/18 05:16 ABG, PT/INR, D-dimer: PT/INR, D-dimer PT 16.6 Sec. (12.2-14.9) H 03/04/18 17:26 INR 1.27 (0.87-1.13) H 03/04/18 17:26 Abnormal lab findings: Abnormal Labs 03/03/18 03/03/18 03/03/18 20:46 21:45 22:49 WBC 20.4 H RBC 1.16 L Hgb 2.3 L* Hct 8.3 L* MCV 72 L MCH 20 L MCHC 28 L RDW 28.2 H Plt Count 786 H Lymph % (Auto) Lymph # Seg Neutrophils % Seg Neuts % (Manual) 85.0 H Lymphocytes % (Manual) 11.0 L Seg Neutrophils # Seg Neutrophils # Man 17.3 H PT INR Sodium 130 L Potassium Chloride 94.2 L Carbon Dioxide 20 L BUN 8 L Creatinine Glucose 106 H POC Glucose Calcium Phosphorus Total Bilirubin AST Alkaline Phosphatase C-Reactive Protein NT-Pro-B Natriuret Pep 1007 H Albumin Crossmatch See Detail 03/04/18 03/04/18 03/04/18 03:28 12:16 12:16 WBC 15.8 H RBC 2.52 L Hgb 6.1 L D Hct 19.7 L* D MCV 78 L MCH 24 L MCHC 31 L RDW 25.1 H Plt Count 730 H Lymph % (Auto) Lymph # Seg Neutrophils % Seg Neuts % (Manual) 87.0 H Lymphocytes % (Manual) 8.0 L Seg Neutrophils # Seg Neutrophils # Man 13.7 H PT INR Sodium 136 L Potassium 3.3 L D Chloride 97.3 L Carbon Dioxide BUN 8 L Creatinine 0.7 L Glucose 103 H POC Glucose 109 H Calcium Phosphorus Total Bilirubin 1.90 H AST 69 H Alkaline Phosphatase 146 H C-Reactive Protein NT-Pro-B Natriuret Pep Albumin 3.6 L Crossmatch 03/04/18 03/04/18 03/04/18 12:16 12:16 17:26 WBC RBC Hgb Hct MCV MCH MCHC RDW Plt Count Lymph % (Auto) Lymph # Seg Neutrophils % Seg Neuts % (Manual) Lymphocytes % (Manual) Seg Neutrophils # Seg Neutrophils # Man PT 16.6 H INR 1.27 H Sodium 136 L Potassium 3.5 L Chloride 96.9 L Carbon Dioxide 21 L BUN 8 L Creatinine Glucose POC Glucose Calcium Phosphorus 2.40 L Total Bilirubin AST Alkaline Phosphatase C-Reactive Protein 1.60 H NT-Pro-B Natriuret Pep Albumin Crossmatch 03/05/18 03/05/18 03/06/18 04:21 04:21 05:16 WBC 13.2 H 18.0 H RBC 2.16 L 3.18 L Hgb 5.2 L* 8.1 L Hct 16.6 L* 24.7 L D MCV 77 L 78 L MCH 24 L 25 L MCHC 31 L RDW 25.1 H 23.5 H Plt Count 632 H 681 H Lymph % (Auto) 5.4 L Lymph # 1.0 L Seg Neutrophils % 90.0 H Seg Neuts % (Manual) 80.0 H Lymphocytes % (Manual) 11.0 L Seg Neutrophils # 16.2 H Seg Neutrophils # Man 10.6 H PT INR Sodium 136 L Potassium Chloride Carbon Dioxide BUN 5 L Creatinine 0.6 L Glucose POC Glucose Calcium 8.0 L Phosphorus Total Bilirubin AST Alkaline Phosphatase C-Reactive Protein NT-Pro-B Natriuret Pep Albumin Crossmatch 03/06/18 05:16 WBC RBC Hgb Hct MCV MCH MCHC RDW Plt Count Lymph % (Auto) Lymph # Seg Neutrophils % Seg Neuts % (Manual) Lymphocytes % (Manual) Seg Neutrophils # Seg Neutrophils # Man PT INR Sodium Potassium Chloride 97.9 L Carbon Dioxide 21 L BUN 6 L Creatinine 0.6 L Glucose 110 H POC Glucose Calcium Phosphorus Total Bilirubin AST 75 H Alkaline Phosphatase 146 H C-Reactive Protein NT-Pro-B Natriuret Pep Albumin 3.6 L Crossmatch
[2018-03-07 05:52] LABS: Basophils # (Auto) 0.1 K/mm3 (0.0-0.1); Basophils % (Auto) 0.4 % (0.0-1.8); Eosinophils # (Auto) 0.1 K/mm3 (0.0-0.4); Eosinophils % (Auto) 0.5 % (0.0-4.3); Hematocrit 23.6 % (35.5-45.6); Hemoglobin 7.4 gm/dl (11.8-15.2); Lymphocytes % (Auto) 12.3 % (13.4-35.0); Mean Corpuscular HGB Conc 31 % (32-34); Mean Corpuscular Volume 80 fl (84-94); Monocytes # (Auto) 0.9 K/mm3 (0.0-0.8); Monocytes % (Auto) 5.3 % (0.0-7.3); Platelet Count 658 K/mm3 (140-440); Red Blood Count 2.95 M/mm3 (3.65-5.03)
[2018-03-07 05:53] LABS: Mean Corpuscular Hemoglobin 25 pg (28-32); Red Cell Distribution Width 24.3 % (13.2-15.2)
[2018-03-07] MEDS: FOLVITE PO SCH (10:42)
[2018-03-07] MEDS: COLACE PO SCH (10:42)
[2018-03-07] MEDS: PROTONIX PO SCH (10:43)
[2018-03-07] MEDS: SODIUM CHLORIDE FLUSH SYRINGE 10 ML IV SCH (10:43)
[2018-03-07] MEDS: THERAGRAN Tab PO SCH (10:43)
[2018-03-07] MEDS: VITAMIN B-1 PO SCH (10:44)
--- NOTE | 2018-03-07 12:51 | Gastroenterology Progress Note ---
Assessment and Plan GI: no signs bleeding overnight - s/p benign egd/colon - labs pending today - if h/h stable ok to d/c from GI standpoint with pill cam as outpt - no changes at this time, will follow Subjective Date of service: 03/07/18 Principal diagnosis: Acute GI Bleed; Symptomatic Anemia Interval history: - no GI complaints overnight. Denies signs bleeding Objective - Constitutional Vitals: Temp Pulse Resp BP Pulse Ox 98.6 F 75 18 119/71 100 03/07/18 07:14 03/07/18 07:14 03/07/18 07:14 03/07/18 07:14 03/07/18 07:14 General appearance: no acute distress - Respiratory Respiratory: bilateral: CTA - Cardiovascular Rhythm: regular Heart Sounds: Present: S1 & S2 - Gastrointestinal General gastrointestinal: Present: soft, non-tender, non-distended - Labs CBC & Chem 7: 03/07/18 04:56 03/06/18 05:16 Labs: Laboratory Results - last 24 hr 03/03/18 03/07/18 22:49 04:56 WBC 16.2 H RBC 2.95 L Hgb 7.4 L Hct 23.6 L MCV 80 L MCH 25 L MCHC 31 L RDW 24.3 H Plt Count 658 H Lymph % (Auto) 12.3 L Wayne % (Auto) 5.3 Eos % (Auto) 0.5 Baso % (Auto) 0.4 Lymph # 2.0 Wayne # 0.9 H Eos # 0.1 Baso # 0.1 Seg Neutrophils % 81.5 H Seg Neutrophils # 13.2 H Crossmatch See Detail
[2018-03-07] MEDS ORDERED: FEOSOL PO SCH (13:00)
--- NOTE | 2018-03-07 15:14 | Discharge Summary ---
Providers - Providers Date of Admission: 03/03/18 22:52 Date of discharge: 03/07/18 Attending physician: CASIMIRO GUIDRY 03/03/18 22:44 Consult to Physician [CONS] Stat Comment: Dr. Garcia (er dr) spoke with Dr. Filomena Abarca Consulting Provider: ABHISHEK ABARCA Physician Instructions: Reason For Exam: gi bleed 03/04/18 02:33 Consult to Physician [CONS] Routine Comment: spoke to the answering service at 0233 Consulting Provider: FORTUNATO AWAD Physician Instructions: Reason For Exam: CCU Primary care physician: CATALINA TREVIÑO Hospitalization Condition: Critical Hospital course: Discharge diagnosis and management: GI bleed, probably from diverticulosis -Patient transfused with total 7 units of packed red blood cells, Hb today 8.1 -GI was consulted in the ED, s/p EGD and colonoscopy- no gross blood found - advance diet, transfer out off icu unit today to floor - monitor H and h Grade 2 internal hemorrhoid - place on [place] steroid SIRS -no source of infection, likely reactive -negative blood and urine cultures, normal CXR, no fever -We'll stop abx, monitor cbc Hyponatremia -improved with IV fluid, History of alcohol abuse -placed on alcohol withdrawal protocol -Patient was counseled on cessation Elevated BNP -preserved EF on echocardiogram Prophylaxis -DVT prophylaxis with SCD and GI prophylaxis with Protonix. Brief history: Patient is a 37-year-old -[place] male who presented with one-week history of dizziness. He has associated generalized weakness, easy fatigability , near syncope, sob with mild exertion, leg swelling and palpitation. He also admits to 4 weeks history of passage of dark stool. On admission his hemoglobin noted to be 2.3. GI consulted from ER, transfused total 7 units of packed RBC, placed on alcohol withdrawl protocol. s/p EGD and colonoscopy showed diverticulosis and Grade 2 internal hemorrhoid. Radiological test: Chest x-ray: No infiltrates CT scan of abdomen and pelvis with contrast: No acute intra-abdominal process, fatty infiltration of the liver. 2d echo - Ef 55% Hospitalist Physical exam: GENERAL: well-developed and well-nourished -[place]ian male lying on bed appeared to be in no discomfort. HEENT: Normocephalic. Atraumatic. No conjunctival congestion or icterus. Patient has moist mucous membranes. NECK: Supple. Trachea midline. CHEST/LUNGS: Clear to auscultated bilaterally, breathing nonlabored. No wheezes crackles or rhonchi. HEART/CARDIOVASCULAR: Regular in rate and rhythm. S1 and S2 positive. ABDOMEN: Abdomen is soft, nontender. Patient has normal bowel sounds. SKIN: There is no rash. Warm and dry. NEURO: No focal motor deficit. Follows command. MUSCULOSKELETAL: No joint effusion or tenderness. EXTRIMITY: No edema, no cyanosis or clubbing. PSYCH: Cooperative. Disposition: DC-01 TO HOME OR SELFCARE Time spent for discharge: 32 minutes Core Measure Documentation - Palliative Care Palliative Care/ Comfort Measures: Not Applicable - Core Measures Any of the following diagnoses?: none Exam - Constitutional Vitals: Temp Pulse Resp BP Pulse Ox 98.6 F 75 18 119/71 100 03/07/18 07:14 03/07/18 07:14 03/07/18 07:14 03/07/18 07:14 03/07/18 07:14 Plan Activity: advance as tolerated Weight Bearing Status: Weight Bear as Tolerated Diet: other (high fibre diet) Additional Instructions: f/u with howe liner reroll tender in 2 weeks for capsule endoscopy. Follow up with: CATALINA TREVIÑO MD [Primary Care Provider] - 7 Days Prescriptions: Ferrous Sulfate [Feosol 325 MG tab] 325 mg PO BID #60 tablet Folic Acid [Folvite] 1 mg PO QDAY #30 tablet Hydrocortisone 2.5% [Proctosol-Hc] 1 applic UT Q8H PRN #10 tube PRN Reason: Hemorrhoids Pantoprazole [Protonix TAB] 40 mg PO QDAY #30 tablet Thiamine [Vitamin B-1] 100 mg PO QDAY #30 tablet
[2018-03-07] MEDS ORDERED: PROCTOSOL-HC PR PRN (16:00)
[2018-03-07 16:39] VITALS: BP 121/76
--- NOTE | 2018-03-07 22:37 | Consultation ---
CONSULTING PHYSICIAN: . REASON FOR CONSULTATION: Acute GI bleed, symptomatic anemia. CHIEF COMPLAINT AND HISTORY OF PRESENT ILLNESS: The patient is a 37-year-old -Martiniquais male with past medical history significant only for a diagnosis of tobacco and alcohol overuse/abuse, who came in complaining of generalized weakness, easy fatigability, near syncope, increase in dyspnea on exertion, and new onset leg swelling and palpitations. He admitted to 4-week history of passing dark stools and occasionally bright red blood. He had had a similar episode a few months back and forth nothing of it. He denied abdominal pain, constipation, or diarrhea when he became very symptomatic to the point of almost passing out. He came into the Emergency Room. In the Emergency Room, he was evaluated and found to be severely anemic with serum hemoglobin of 2.3. He was admitted for further management. When I stopped by to see him, he was resting in the ICU bed, talking to me. He had received some blood with an appropriate rise in his hemoglobin. He, however, still complained of some blood in his stools at the recent bowel movement. He has a 10+ pack year tobacco smoking history and has been abusing alcohol usage for at least about 10 years. It is really is as much of the history of presentation as I have. He denies any known history of esophageal varices. He knows he has some hemorrhoids. PAST MEDICAL HISTORY: Again, 1. Hemorrhoids. 2. Left inguinal hernia. PAST SURGICAL HISTORY: Hemorrhoidectomy. MEDICATIONS: He was on at the time I stopped by to see him were reviewed, pertinent medications included the following: He was on p.r.n. [place], docusate sodium 100 mg p.o. b.i.d., folic acid 1 mg p.o. daily, Ativan 2 mg IV q.4 hours p.r.n. agitation, daily multivitamin, Zofran 4 mg IV q.8 hours p.r.n. nausea and vomiting, Protonix 40 mg p.o. daily. He also had received 2 g of Rocephin in the Emergency Room I believe. ALLERGIES: No known drug allergies. DIET: Well-built gentleman. Denies acute weight loss or gain preceding few weeks to months. He is n.p.o. for now. FAMILY AND SOCIAL HISTORY: Lives in the community. He has a 10+ pack year tobacco smoking history, has a 10-year history of alcohol abuse. Denies illicit drug use or abuse. Family and was otherwise noncontributory. REVIEW OF SYSTEMS: Obtained. He denied any new onset seizures. No new onset focal weakness. No palpitations, no chest pain. He did have the dyspnea on exertion. He denied any polydipsia or any polyuria. Complete 13 review of systems obtained. Pertinent positives and/or negatives as in body of history above, otherwise they are noncontributory. PHYSICAL EXAMINATION: VITAL SIGNS: At presentation in the Emergency Room, review of the vital signs show that he was afebrile, temperature 98.9, pulse was 105, respiratory rate was 16, blood pressure 106/47, O2 sats were 97%, inspired oxygen concentration was not recorded. He was on room air at the time of my evaluation with 99% O2 sats. GENERAL: A middle-aged young -Martiniquais male, looks as stated age, normocephalic, atraumatic, talking to me in full sentences without significant respiratory distress. HEAD, EYES, EARS, AND NOSE: He had some mild scleral icterus. No conjunctival erythema. Oropharynx is Mallampati #2, mild oropharyngeal pallor. No gross jugular venous distention. Grossly, no palpable lymph nodes in the supraclavicular or submandibular lymph node chains. No thyromegaly. LUNGS: Auscultation of both lung koch unremarkable. Lungs are clear. HEART: Heart sounds 1 and 2 are heard. They were regular in rate and rhythm at time of my evaluation. No rubs, no murmurs. ABDOMEN: Soft, full, bowel sounds are positive, did not appear tender. EXTREMITIES: Without overt digital clubbing, cyanosis, or pedal edema. NEUROLOGIC: Pupils were equal, round, about 4 mm, reactive to light. Extraocular muscle movements were intact. He moved all 4 extremities spontaneously. The skin was of normal turgor. No cellulitis, no rash. LABORATORY DATA: From my review are as follows: Admission white cell count 20,400 with a hemoglobin of 2.3, hematocrit of 8.3, platelet count 786,000. Serum sodium 130, potassium 4.2, chloride 94, bicarbonate 20, BUN 8, creatinine 0.8, and glucose 106. Lactic acid level within normal limits. BNP elevated at 1007. Urinalysis was unremarkable, bland. A 2D echocardiogram had been done and I have reviewed, it is a normal ejection fraction, normal left ventricular diastolic function. Mild pulmonary hypertension, mild mitral regurgitation. No radiographic studies. ASSESSMENT: 1. Acute gastrointestinal bleed. 2. Symptomatic anemia. 3. Cardiomyopathy, likely related to the longstanding anemia. 4. Alcohol abuse. 5. Tobacco use disorder. 6. Thrombocytosis, likely related to the anemia. 7. Hyponatremia. 8. Mild metabolic acidosis. 9. Elevated serum BNP. PLAN: He is going to be nothing by mouth pending colonoscopy and upper endoscopy. He will be continued his thiamine. Also, will be placed on folic acid. We will watch him closely for delirium tremens and will be placed on a CIWA protocol. He is receiving blood transfusions and we will try to get a serum hemoglobin preferably greater than 7. Otherwise, we will continue gastrointestinal prophylaxis. Deep venous thrombosis prophylaxis in the form of sequential compression devices. Flu and pneumonia vaccination will be per protocol. Once endoscopy has been completed and he is cleared, he will be transferred out of the Intensive Care Unit. Thank you very much for the consult . We will follow along and make further recommendations as picture progresses/becomes clearer. JOB# [id number] TASIA/NATALY
== END 2018-03-07 17:45 | disposition home or self-care (01) | DRG 378 ==
LOC: ED 18:05 → 4A 22:52 → CC1 03-04 02:36 → 4A 03-06 17:16
PROVIDERS: ADMIT Internal Medicine; ATTEND Internal Medicine
PROC: 30233N1 Transfusion of Nonautologous Red Blood Cells into Peripheral Vein, Percutaneous Approach (ICD-10-PCS; 2018-03-04)
PROC: 0DJ08ZZ Inspection of Upper Intestinal Tract, Via Natural or Artificial Opening Endoscopic (ICD-10-PCS; principal; 2018-03-05)
PROC: 0DJD8ZZ Inspection of Lower Intestinal Tract, Via Natural or Artificial Opening Endoscopic (ICD-10-PCS; 2018-03-05)
DX: K57.31 Diverticulosis of large intestine without perforation or abscess with bleeding (principal); E87.1 Hypo-osmolality and hyponatremia; R65.10 Systemic inflammatory response syndrome (SIRS) of non-infectious origin without acute organ dysfunction; B37.81 Candidal esophagitis; D64.9 Anemia, unspecified; F10.10 Alcohol abuse, uncomplicated; Y90.0 Blood alcohol level of less than 20 mg/100 ml; F17.200 Nicotine dependence, unspecified, uncomplicated; K44.9 Diaphragmatic hernia without obstruction or gangrene; K64.1 Second degree hemorrhoids
CPT/HCPCS: 36415; 71046; 74177; 80048; 80053; 81001; 82140; 82962; 83615; 83735; 83880; 84100; 84484; 85007; 85014; 85018; 85025; 85610; 85730; 86140; 86850; 86900; 86901; 86920; 87040; 87086; 93005; 93010; 93306; 96374; 96375; C9113; J0696; J1100; J1940; J2250; J2370; J2405; J2704; J7030; J7040; P9016; Q9967